=== PATIENT | male | born 1945 | race Caucasian/White ===

== ENCOUNTER 2019-03-10 15:05 | Inpatient (IN) | payer MEDICARE ==
[~2019-03-10] VITALS: Ht 170.2 cm; Wt 109.9 kg
[2019-03-10 15:58] LABS: BASOPHILS # (AUTO) 0.1 X10'3 (0-0.2); BASOPHILS % (AUTO) 0.9 % (0-1); EOSINOPHILS # (AUTO) 0.1 X10'3 (0-0.9); EOSINOPHILS % (AUTO) 0.9 % (0-6); HEMATOCRIT 38.8 % (42.0-52.0); HEMOGLOBIN 13.3 g/dl (14.0-17.9); LYMPHOCYTES # (AUTO) 3.9 X10'3 (1.1-4.8); LYMPHOCYTES % (AUTO) 36.9 % (21-51); MEAN CORPUSCULAR HGB CONC 34.4 g/dL (33.0-36.5); MEAN CORPUSCULAR VOLUME 87.2 FL (78-98); MEAN PLATELET VOLUME 8.9 FL (7.4-10.4); MONOCYTES % (AUTO) 9.2 % (2-12); NEUTROPHILS # (AUTO) 5.4 X10'3 (1.8-7.7); NEUTROPHILS % (AUTO) 52.1 % (42-75); PLATELET COUNT 211 X10'3 (140-440); RED BLOOD COUNT 4.45 X10'6 (4.70-6.10); RED CELL DISTRIBUTION WIDTH 14.1 % (11.5-14.5); WHITE BLOOD COUNT 10.4 X10'3 (4.5-11.0)
[2019-03-10 16:13] LABS: PARTIAL THROMBOPLASTIN TIME 25 SECONDS (22-32)
[2019-03-10 16:17] LABS: ALANINE AMINOTRANSFERASE 31 U/L (12-78); ALBUMIN 3.1 G/DL (3.4-5.0); ALBUMIN/GLOBULIN RATIO 0.9 (1.1-1.5); ALKALINE PHOSPHATASE 73 IU/L (46-116); ANION GAP 8 (8-16); ASPARTATE AMINO TRANSFERASE 24 U/L (10-37); BILIRUBIN,TOTAL 0.5 MG/DL (0.1-1.0); BLOOD UREA NITROGEN 21 MG/DL (7-18); BUN/CREATININE RATIO 11.1 (5.4-32.0); CHLORIDE 101 MMOL/L (99-107); GLUCOSE 200 MG/DL (70-104); POTASSIUM 4.1 MMOL/L (3.5-5.1); SODIUM 137 MMOL/L (135-145); TOTAL CARBON DIOXIDE 27.7 MMOL/L (24-32); TOTAL PROTEIN 6.6 G/DL (6.4-8.2); eGFR 35 ML/MIN
--- NOTE | 2019-03-10 16:17 | NUR ---
stroke level [address] Coates last seen normal at 1030 this morning.
[2019-03-10 16:27] LABS: ETHANOL < 0.010 GM/DL (0.0-0.010); MAGNESIUM 1.4 MG/DL (1.5-2.4); PHOSPHORUS 4.2 MG/DL (2.3-4.5)
--- NOTE | 2019-03-10 16:40 | NUR ---
tele neuro in progress.
--- NOTE | 2019-03-10 16:45 | NUR ---
no noted neurological deficits at this time,no ataxia,no dysphagia-was able to tolerate thin liquid without difficulty,no tongue asymmetry,no aphasia.
--- NOTE | 2019-03-10 16:51 | NUR ---
slurred speech resolved upon arrival to ED-per patient.
[2019-03-10] MEDS ORDERED: aspirin 325mg tablet PO ONE (16:55)
--- NOTE | 2019-03-10 17:31 | NUR ---
Received report from Maty. Called back due to patient not having a code status, allergies not addressed nor med rec. Stated the charge "told her to send her" and that is was "bonkers down there"
[2019-03-10] MEDS ORDERED: potassium Cl 20 mEq SR tablet PO PRN ×2 (17:40)
[2019-03-10] MEDS ORDERED: ondansetron/PF 4mg/2ml inj IV PRN (17:40)
[2019-03-10] MEDS ORDERED: mag hydrox/Alum hydrox/simeth 30ml oral suspension PO PRN (17:40)
[2019-03-10] MEDS ORDERED: magnesium hydroxide 30ml (MOM) UD suspension PO PRN (17:40)
[2019-03-10] MEDS ORDERED: magnesium 2GM in 50ml NS 50 ML IV PRN (17:40)
[2019-03-10] MEDS ORDERED: magnesium Cl slow-release 64mg tablet PO PRN (17:40)
[2019-03-10] MEDS ORDERED: potassium Cl 40MEQ/NS 500ml 500 ML IV PRN ×2 (17:40)
[2019-03-10] MEDS ORDERED: magnesium 4gm in 100ml NS 100 ML IV PRN (17:40)
[2019-03-10] MEDS ORDERED: bisacodyl 10mg suppository rectal RC PRN (17:40)
[2019-03-10] MEDS ORDERED: acetaminophen 325mg tablet PO PRN (17:40)
[2019-03-10] MEDS ORDERED: LIRA0.6P2 SQ (17:43)
[2019-03-10] MEDS ORDERED: OMEP40CA37 PO (17:44)
[2019-03-10] MEDS ORDERED: glucagon, human recombinant 1mg kit SUBCUT PRN ×2 (17:45→18:15)
[2019-03-10] MEDS ORDERED: dextrose 50%-water 50ml dispensing syringe IV PRN ×4 (17:45→18:15)
[2019-03-10] MEDS ORDERED: MESSAGE TO PHARMACY PO ONE ×2 (17:45→18:15)
[2019-03-10] MEDS ORDERED: dextrose ORAL solution 15 GM/59 ML bottle PO PRN ×4 (17:45→18:15)
[2019-03-10] MEDS ORDERED: insulin Lispro (HumaLOG) vial - multi-dose SQ SCH ×2 (17:45→18:15)
[2019-03-10] MEDS ORDERED: GLIP10TA11 PO (17:48)
[2019-03-10] MEDS ORDERED: FLO0.4C PO (17:49)
[2019-03-10] MEDS ORDERED: hydrALAZINE 20mg/ml inj. IV PRN (17:50)
[2019-03-10] MEDS ORDERED: METF500T PO (17:50)
[2019-03-10] MEDS ORDERED: LISI-600 PO (17:52)
[2019-03-10] MEDS ORDERED: MULT-933 PO (17:53)
[2019-03-10] MEDS ORDERED: INSU100I25 SQ (17:54)
[2019-03-10] MEDS ORDERED: SYN0.088T PO (17:55)
[2019-03-10 18:00] VITALS: BP 184/99
--- NOTE | 2019-03-10 18:06 | NUR ---
Page to Dr. Vargas MESSAGE: [id number] Juan Moody are reconciled for you to address. Allergy PN Phoebe [id number]
[2019-03-10] MEDS ORDERED: FLUO-103 PO (18:31)
[2019-03-10] MEDS ORDERED: SIMV40TA4 PO (18:31)
[2019-03-10] MEDS: pantoprazole 40 MG vial IV SCH (18:47)
[2019-03-10] MEDS: sodium chloride 0.45% 1,000 ML IV SCH (18:48)
[2019-03-10] MEDS: LIDOcaine 5% patch TP SCH (18:48)
[2019-03-10] MEDS: HYDROcodone/acetaminophen 5mg/325mg tablet PO PRN (18:48)
--- NOTE | 2019-03-10 18:50 | NUR ---
Received patient. Patient alert and oriented x4, walked to the bed. Received meds from . VSS
[2019-03-10] MEDS: heparin, porcine 5000 units/ml vial SQ SCH (19:56)
[2019-03-10] MEDS ORDERED: atorvastatin 20mg tablet PO SCH (20:00)
[2019-03-10] MEDS: docusate sod 100mg capsule PO SCH (20:46)
--- NOTE | 2019-03-10 20:49 | NUR ---
NIH stroke assessment completed. Patient scored 0. I am finding that, with some conversation, he can have a little difficulty with word finding. Otherwise, no deficits identified.
[2019-03-10] MEDS ORDERED: insulin glargine (Lantus) pen - multi-dose SQ SCH (21:00)
[2019-03-10] MEDS ORDERED: tamsulosin 0.4mg capsule PO SCH (21:00)
[2019-03-10 22:00] VITALS: BP 172/70
[2019-03-10 23:00] LABS: CLARITY,URINE CLEAR (Clear); COLOR,URINE YELLOW (Yellow); GLUCOSE, URINE 100 mg/dl (Neg); KETONES,URINE TRACE mg/dl (Neg); LEUKOCYTE ESTERASE ,URINE NEGATIVE (Neg); NITRITES, URINE NEGATIVE (Neg); OCCULT BLOOD,URINE MODERATE (Neg); PROTEIN,URINE >=300 mg/dl (Neg)
[2019-03-10 23:06] LABS: UA COLLECTION TYPE CLN CATCH MIDSTREAM
[2019-03-10 23:07] LABS: BACTERIA,URINE FEW /HPF (Neg); SQUAMOUS EPITHELIAL CELL,UR FEW /LPF (FEW); WBC,URINE NONE SEEN /HPF (0-4)
[2019-03-10 23:42] LABS: URINE AMPHETAMINE SCREEN NEGATIVE (Neg); URINE BARBITUATE SCREEN NEGATIVE (Neg); URINE BENZODIAZEPINES SCREEN NEGATIVE (Neg); URINE CANNABINOID SCREEN NEGATIVE (Neg); URINE COCAINE SCREEN NEGATIVE (Neg); URINE METHADONE SCREEN NEGATIVE (Neg); URINE OPIATE SCREEN POSITIVE (Neg); URINE PHENCYCLIDINE SCREEN NEGATIVE (Neg)
[2019-03-11] VITALS: BP 129/83
[2019-03-11 04:00] VITALS: BP 157/71
--- NOTE | 2019-03-11 05:59 | NUR ---
reviewed and agree with SRN assessment.
[2019-03-11 06:34] LABS: BASOPHILS # (AUTO) 0.1 X10'3 (0-0.2); BASOPHILS % (AUTO) 0.8 % (0-1); EOSINOPHILS # (AUTO) 0.2 X10'3 (0-0.9); EOSINOPHILS % (AUTO) 1.8 % (0-6); HEMATOCRIT 35.9 % (42.0-52.0); HEMOGLOBIN 12.3 g/dl (14.0-17.9); LYMPHOCYTES # (AUTO) 5.3 X10'3 (1.1-4.8); LYMPHOCYTES % (AUTO) 48.5 % (21-51); MEAN CORPUSCULAR HEMOGLOBIN 30.1 PG (27.0-31.0); MEAN CORPUSCULAR HGB CONC 34.4 g/dL (33.0-36.5); MEAN CORPUSCULAR VOLUME 87.6 FL (78-98); MEAN PLATELET VOLUME 8.9 FL (7.4-10.4); MONOCYTES # (AUTO) 1.1 X10'3 (0-0.9); MONOCYTES % (AUTO) 9.9 % (2-12); NEUTROPHILS # (AUTO) 4.3 X10'3 (1.8-7.7); PLATELET COUNT 187 X10'3 (140-440); RED CELL DISTRIBUTION WIDTH 13.6 % (11.5-14.5)
[2019-03-11] MEDS: HYDROcodone/acetaminophen 5mg/325mg tablet PO PRN ×2 (06:41→12:02)
[2019-03-11 06:47] LABS: ALBUMIN 2.7 G/DL (3.4-5.0); ANION GAP 6 (8-16); BLOOD UREA NITROGEN 19 MG/DL (7-18); BUN/CREATININE RATIO 11.4 (5.4-32.0); CALCIUM 8.8 MG/DL (8.5-10.1); CHLORIDE 104 MMOL/L (99-107); CHOL/HDL RATIO 5.3 (0.00-4.99); CHOLESTEROL 180 MG/DL (0-200); CREATININE 1.67 MG/DL (0.60-1.10); GLUCOSE 115 MG/DL (70-104); HDL CHOLESTEROL 34 MG/DL (35-60); LDL CHOLESTEROL 117 MG/DL (50-100); MAGNESIUM 1.4 MG/DL (1.5-2.4); SODIUM 138 MMOL/L (135-145); TOTAL CARBON DIOXIDE 27.6 MMOL/L (24-32); TRIGLYCERIDES 213 MG/DL (20-135); eGFR 41 ML/MIN
[2019-03-11] MEDS: LIDOcaine 5% patch TP SCH ×2 (06:48→11:36)
[2019-03-11] MEDS ORDERED: levoTHYROXINE 88mcg tablet PO SCH (07:00)
[2019-03-11] MEDS ORDERED: multivitamins, therapeutics tablet PO SCH (08:00)
[2019-03-11] MEDS: heparin, porcine 5000 units/ml vial SQ SCH (08:00)
[2019-03-11] MEDS ORDERED: lisinopril 10 MG tablet PO SCH (08:00)
[2019-03-11] MEDS ORDERED: aspirin 325mg tablet, delayed-release (Ecotrin) PO SCH (08:00)
[2019-03-11] MEDS ORDERED: insulin glargine (Lantus) pen - multi-dose SQ SCH (08:00)
[2019-03-11] MEDS ORDERED: FLUoxetine 10mg capsule PO SCH (08:00)
[2019-03-11] MEDS ORDERED: K and/or MAG REPLACEMENT MC SCH (08:00)
[2019-03-11 10:00] VITALS: BP 156/73
[2019-03-11] MEDS: pantoprazole 40 MG vial IV SCH (11:36)
[2019-03-11] MEDS: docusate sod 100mg capsule PO SCH (11:37)
[2019-03-11 11:38] VITALS: BP_SYST 172
[2019-03-11] MEDS: sodium chloride 0.45% 1,000 ML IV SCH (11:50)
[2019-03-11] MEDS ORDERED: ATOR20TA66 PO (13:31)
[2019-03-11] MEDS ORDERED: SYN0.112T PO (13:31)
[2019-03-11] MEDS ORDERED: ASPI-41 PO (13:31)
--- NOTE | 2019-03-11 14:36 | NUR ---
DM/Malnutrition Consults: Pt has no edema/wounds, weakness, or wt loss hx. Does not qualify for malnutrition at this time. Hx T2DM A1C 11.3. Pt/SO seen by RD for written/verbal HH/DM ed w/ RD contact information provided. Pt hx hyperlipidemia TG 213. Pt reports knowing what to do just not doing it; encouraged water intake since pt reports not drinking much; admit w/ dehydration and stroke. RD encouraged attending CDE course. PO 100% meals meeting needs. LBM 03/07 w/ MoM and dulcolax PRN. Will continue to monitor. Rec: 1. continue carb controlled/heart healthy diet 2. routine bowel care 3. wt per rx Addendum: 03/11/19 at [address] Amended: Links added.
--- NOTE | 2019-03-11 15:15 | NUR ---
Received discharge orders from Dr. Vargas. Discharge medications called to [facility] on [address] per pts . IV LFA dc'd with cannula intact. No redness/swelling at insertion site. Applied bandaid. Reviewed discharge medications with pt and discharged via w/c to front lobby to private car.
[2019-03-12] MEDS ORDERED: levoTHYROXINE 112mcg tablet PO SCH (07:00)
[2019-03-12] MEDS ORDERED: pantoprazole 40mg Tablet.DR PO SCH (07:30)
== END 2019-03-11 15:15 | disposition home or self-care (01) | DRG 65 ==
LOC: ER 15:06 → ORTHO 4S 17:08 → CMPBEDREQ 19:56
PROVIDERS: ADMIT Internal Medicine; ATTEND Internal Medicine
DX: I63.9 Cerebral infarction, unspecified (principal); N17.9 Acute kidney failure, unspecified; E11.9 Type 2 diabetes mellitus without complications; M54.9 Dorsalgia, unspecified; E83.42 Hypomagnesemia; E78.00 Pure hypercholesterolemia, unspecified; I10 Essential (primary) hypertension; E78.5 Hyperlipidemia, unspecified; F32.9 Major depressive disorder, single episode, unspecified; E03.9 Hypothyroidism, unspecified; E86.0 Dehydration; L40.9 Psoriasis, unspecified; Z88.0 Allergy status to penicillin; Z79.82 Long term (current) use of aspirin; Z79.899 Other long term (current) drug therapy; Z87.891 Personal history of nicotine dependence
CPT/HCPCS: 36415; 70450; 70544; 70551; 71045; 80048; 80053; 80061; 80305; 80320; 81001; 82948; 83036; 83735; 84100; 84443; 84484; 85025; 85610; 85651; 85730; 93005; 93306; 93880; 97162; 97530; 99285; C9113; G0378; J1644; J1815; J2405

== ENCOUNTER 2019-03-19 13:02 | Emergency (ER) | payer MEDICARE ==
[~2019-03-19] VITALS: Ht 170.2 cm; Wt 96.0 kg
[~2019-03-19 13:02] MED LIST: ASPI-41 PO; ATOR20TA66 PO; FLO0.4C PO; FLUO-103 PO; INSU100I25 SQ; LISI-600 PO; MULT-933 PO; OMEP40CA37 PO; SYN0.112T PO
[2019-03-19 13:13] VITALS: BP 122/83
[2019-03-19] MEDS ORDERED: gabapentin 400mg capsule PO STA (14:55)
[2019-03-19] MEDS ORDERED: GABA-532 PO (15:02)
[2019-03-19] MEDS ORDERED: gabapentin 300mg capsule PO STA (15:03)
== END 2019-03-19 15:44 | disposition home or self-care (01) ==
LOC: ER 13:03
DX: B02.29 Other postherpetic nervous system involvement (principal); I10 Essential (primary) hypertension; E78.00 Pure hypercholesterolemia, unspecified; E11.9 Type 2 diabetes mellitus without complications; Z88.0 Allergy status to penicillin; Z79.82 Long term (current) use of aspirin; Z79.4 Long term (current) use of insulin
CPT/HCPCS: 99284

== ENCOUNTER 2019-03-26 20:39 | Emergency (ER) | payer MEDICARE ==
[~2019-03-26] VITALS: Ht 170.2 cm; Wt 104.4 kg
[~2019-03-26 20:39] MED LIST changes: +GABA-532 PO
[2019-03-26 20:51] VITALS: BP 175/76
[2019-03-26] MEDS ORDERED: HYDROcodone/acetaminophen 5mg/325mg tablet PO ONE (22:05)
[2019-03-26] MEDS ORDERED: HYDR-4383 PO (22:06)
== END 2019-03-26 22:48 | disposition home or self-care (01) ==
LOC: ER 20:40
DX: B02.9 Zoster without complications (principal); L53.8 Other specified erythematous conditions; E78.00 Pure hypercholesterolemia, unspecified; I10 Essential (primary) hypertension; E11.9 Type 2 diabetes mellitus without complications; Z86.73 Personal history of transient ischemic attack (TIA), and cerebral infarction without residual deficits; Z88.0 Allergy status to penicillin; Z79.82 Long term (current) use of aspirin; Z79.4 Long term (current) use of insulin; Z79.899 Other long term (current) drug therapy
CPT/HCPCS: 99283

== ENCOUNTER 2019-04-02 19:37 | Emergency (ER) | payer MEDICARE ==
[~2019-04-02] VITALS: Ht 170.2 cm; Wt 105.0 kg
[~2019-04-02 19:37] MED LIST changes: +HYDR-4383 PO
[2019-04-02 20:33] LABS: BASOPHILS # (AUTO) 0.1 X10'3 (0-0.2); EOSINOPHILS # (AUTO) 0.2 X10'3 (0-0.9); EOSINOPHILS % (AUTO) 2.1 % (0-6); HEMATOCRIT 37.9 % (42.0-52.0); HEMOGLOBIN 12.8 g/dl (14.0-17.9); LYMPHOCYTES # (AUTO) 3.2 X10'3 (1.1-4.8); LYMPHOCYTES % (AUTO) 27.8 % (21-51); MEAN CORPUSCULAR HEMOGLOBIN 29.4 PG (27.0-31.0); MEAN CORPUSCULAR HGB CONC 33.7 g/dL (33.0-36.5); MEAN CORPUSCULAR VOLUME 87.4 FL (78-98); MEAN PLATELET VOLUME 9.1 FL (7.4-10.4); MONOCYTES # (AUTO) 0.7 X10'3 (0-0.9); MONOCYTES % (AUTO) 5.8 % (2-12); NEUTROPHILS # (AUTO) 7.2 X10'3 (1.8-7.7); NEUTROPHILS % (AUTO) 63.3 % (42-75); PLATELET COUNT 190 X10'3 (140-440); RED BLOOD COUNT 4.34 X10'6 (4.70-6.10); RED CELL DISTRIBUTION WIDTH 13.6 % (11.5-14.5); WHITE BLOOD COUNT 11.4 X10'3 (4.5-11.0)
[2019-04-02 20:46] LABS: ALANINE AMINOTRANSFERASE 28 U/L (12-78); ALBUMIN/GLOBULIN RATIO 0.9 (1.1-1.5); ALKALINE PHOSPHATASE 94 IU/L (46-116); ANION GAP 6 (8-16); ASPARTATE AMINO TRANSFERASE 16 U/L (10-37); BILIRUBIN,TOTAL 0.4 MG/DL (0.1-1.0); BLOOD UREA NITROGEN 21 MG/DL (7-18); BUN/CREATININE RATIO 13.8 (5.4-32.0); CALCIUM 9.3 MG/DL (8.5-10.1); CHLORIDE 95 MMOL/L (99-107); CREATININE 1.52 MG/DL (0.60-1.10); POTASSIUM 4.8 MMOL/L (3.5-5.1); SODIUM 127 MMOL/L (135-145); TOTAL CARBON DIOXIDE 26.1 MMOL/L (24-32); TOTAL PROTEIN 6.4 G/DL (6.4-8.2); eGFR 45 ML/MIN
[2019-04-02 20:47] LABS: GLUCOSE 491 MG/DL (70-104)
[2019-04-02] MEDS ORDERED: insulin regular, human 10 units/0.1 ml syringe IV ONE (20:50)
[2019-04-02] MEDS ORDERED: normal saline 1000ML IV soln IVB ONE (20:50)
[2019-04-02 21:22] VITALS: BP 159/70
[2019-04-02] MEDS ORDERED: ACYC-202 PO (21:24)
== END 2019-04-02 21:41 | disposition home or self-care (01) ==
LOC: ER 19:38
DX: R42 Dizziness and giddiness (principal); E87.1 Hypo-osmolality and hyponatremia; E11.22 Type 2 diabetes mellitus with diabetic chronic kidney disease; I12.9 Hypertensive chronic kidney disease with stage 1 through stage 4 chronic kidney disease, or unspecified chronic kidney disease; N18.3 Chronic kidney disease, stage 3 (moderate); E78.00 Pure hypercholesterolemia, unspecified; Z86.73 Personal history of transient ischemic attack (TIA), and cerebral infarction without residual deficits; Z88.0 Allergy status to penicillin; Z79.82 Long term (current) use of aspirin; Z79.4 Long term (current) use of insulin; Z79.899 Other long term (current) drug therapy
CPT/HCPCS: 36415; 71045; 80053; 82948; 84484; 85025; 93005; 96361; 96374; 99284; J1815; J7030

== ENCOUNTER 2021-07-14 11:43 | Inpatient (IN) | payer MEDICARE ==
[~2021-07-14] VITALS: Ht 170.2 cm; Wt 110.5 kg
[~2021-07-14 11:43] MED LIST changes: +ACET-75 PO; +ALBU2.5V7 NEB; +ALBU8.5H17 INH; +ASPI-100 PO; -ASPI-41 PO; +BUDE10.22 INH; +CARV6.253 PO; +DOCU-21 PO; +FLUO-1 PO; -FLUO-103 PO; +FURO-150 PO; -GABA-532 PO; +GABA300C PO; -HYDR-4383 PO; -INSU100I25 SQ; +INSU100V12 SQ; +LEVO125T8 PO; +LIRA0.6P2 SUBCUT; -LISI-600 PO; +LISI10TA27 PO; -MULT-933 PO; +MUPI22OI30 TOP; +NITR0.4T48 SL; +OMEP40CA21 PO; -OMEP40CA37 PO; +PRAS25CA PO; +SPIR25TA5 PO; -SYN0.112T PO; +TRAZ-251 PO
[2021-07-14 13:09] LABS: BASOPHILS # (AUTO) 0.1 X10'3 (0-0.2); EOSINOPHILS # (AUTO) 0.9 X10'3 (0-0.9); EOSINOPHILS % (AUTO) 8.4 % (0-6); HEMATOCRIT 29.4 % (42.0-52.0); HEMOGLOBIN 9.5 g/dl (14.0-17.9); LYMPHOCYTES # (AUTO) 4.5 X10'3 (1.1-4.8); LYMPHOCYTES % (AUTO) 42.6 % (21-51); MEAN CORPUSCULAR HEMOGLOBIN 29.1 PG (27.0-31.0); MEAN CORPUSCULAR HGB CONC 32.4 g/dL (33.0-36.5); MEAN PLATELET VOLUME 9.1 FL (7.4-10.4); MONOCYTES % (AUTO) 9.3 % (2-12); NEUTROPHILS # (AUTO) 4.1 X10'3 (1.8-7.7); NEUTROPHILS % (AUTO) 38.7 % (42-75); PLATELET COUNT 192 X10'3 (140-440); RED BLOOD COUNT 3.27 X10'6 (4.70-6.10); RED CELL DISTRIBUTION WIDTH 14.7 % (11.5-14.5); WHITE BLOOD COUNT 10.5 X10'3 (4.5-11.0)
[2021-07-14 13:35] LABS: ALANINE AMINOTRANSFERASE 25 U/L (12-78); ALBUMIN 2.8 G/DL (3.4-5.0); ALBUMIN/GLOBULIN RATIO 0.9 (1.1-1.5); ALKALINE PHOSPHATASE 135 IU/L (46-116); ANION GAP 8 (8-16); ASPARTATE AMINO TRANSFERASE 21 U/L (10-37); BILIRUBIN,TOTAL 0.3 MG/DL (0.1-1.0); BLOOD UREA NITROGEN 32 MG/DL (7-18); BUN/CREATININE RATIO 15.8 (5.4-32.0); CALCIUM 8.1 MG/DL (8.5-10.1); CREATININE 2.03 MG/DL (0.60-1.10); GLUCOSE 161 MG/DL (70-104); POTASSIUM 3.8 MMOL/L (3.5-5.1); SODIUM 147 MMOL/L (135-145); TOTAL CARBON DIOXIDE 27.5 MMOL/L (24-32); eGFR 32 ML/MIN
[2021-07-14 14:14] LABS: CHLORIDE 112 MMOL/L (99-107)
--- NOTE | 2021-07-14 19:08 | NUR ---
PT WORRIED ABOUT HIS BLOOD SUGAR, CHECKED IN TRIAGE WITH REPEAT VS, WAS 157
[2021-07-14] MEDS ORDERED: ipratropium/albuterol 3ml nebule NEB ONE (19:20)
[2021-07-14] MEDS ORDERED: furosemide 10 MG/1 ML 10ml inj IV ONE (20:45)
--- NOTE | 2021-07-14 21:40 | NUR ---
assumed care to patient.assisted on a gurney, placed in a hospital gown.
[2021-07-14] MEDS ORDERED: LIRA0.6P2 SUBCUT (23:02)
[2021-07-14] MEDS ORDERED: FLO0.4C PO (23:02)
[2021-07-14] MEDS ORDERED: BUDE0.5A11 IH (23:02)
[2021-07-14] MEDS ORDERED: CHOL400T57 PO (23:02)
[2021-07-14] MEDS ORDERED: ALB0.5UD INH (23:02)
[2021-07-14] MEDS ORDERED: FERR325T28 PO (23:02)
[2021-07-14] MEDS ORDERED: CYAN50009 PO (23:02)
[2021-07-14] MEDS ORDERED: FURO-150 PO (23:02)
--- NOTE | 2021-07-14 23:24 | NUR ---
pt roomed in bed 1. I assumed care of patient. pt satting well while sitting on a 90 degree angle. he denies any chest pain at present.
[2021-07-15] MEDS ORDERED: magnesium 4gm in 100ml NS 100 ML IV PRN (00:10)
[2021-07-15] MEDS ORDERED: magnesium hydroxide 30ml (MOM) UD suspension PO PRN (00:10)
[2021-07-15] MEDS ORDERED: morphine 2 MG/ML inj. syringe IV PRN (00:10)
[2021-07-15] MEDS ORDERED: HYDROcodone/acetaminophen 5mg/325mg tablet PO PRN (00:10)
[2021-07-15] MEDS ORDERED: potassium Cl 20 mEq SR tablet PO PRN ×2 (00:10)
[2021-07-15] MEDS ORDERED: mag hydrox/Alum hydrox/simeth 30ml oral suspension PO PRN (00:10)
[2021-07-15] MEDS ORDERED: magnesium 2GM in 50ml NS 50 ML IV PRN (00:10)
[2021-07-15] MEDS ORDERED: acetaminophen 325mg tablet PO PRN ×2 (00:10)
[2021-07-15] MEDS ORDERED: magnesium Cl slow-release 64mg tablet PO PRN (00:10)
[2021-07-15] MEDS ORDERED: potassium Cl 40MEQ/1/2NS 520ml 520 ML IV PRN ×2 (00:10)
[2021-07-15] MEDS ORDERED: ondansetron/PF 4mg/2ml inj IV PRN (00:10)
[2021-07-15 01:34] LABS: % IRON SATURATION 11 % (11-46); IRON 34 UG/DL (53-167); TOTAL IRON BINDING CAPACITY 298 UG/DL (259-388)
--- NOTE | 2021-07-15 04:03 | NUR ---
PAGED HOSPITALIST. PT UNCOMFORTABLE AND HAVING DIFFICULTY SLEEPING. MEDICATED FOR PAIN.
--- NOTE | 2021-07-15 04:08 | NUR ---
DR PEARSON ORDERED BREATHING TX FOR PT. WAITING FOR RT. PAIN HAS BEEN IMPROVED.
--- NOTE | 2021-07-15 04:27 | NUR ---
RT AT BEDSIDE
[2021-07-15 07:00] VITALS: BP 153/84
[2021-07-15] MEDS ORDERED: albuterol 2.5 MG/3 ML nebule NEB SCH (07:00)
[2021-07-15] MEDS: albuterol 2.5 MG/3 ML nebule NEB SCH ×3 (07:39→15:11)
[2021-07-15] MEDS: K and/or MAG REPLACEMENT MC SCH ×2 (08:00→20:00)
[2021-07-15] MEDS ORDERED: aspirin 81mg, enteric-coated 1 TAB TABLET.DR PO SCH (08:00)
[2021-07-15] MEDS: atorvastatin 20mg tablet PO SCH (08:17)
[2021-07-15] MEDS: carvedilol 6.25mg tablet PO SCH ×2 (08:17→20:08)
[2021-07-15] MEDS: FLUoxetine 20mg capsule PO SCH (08:17)
[2021-07-15] MEDS: furosemide 20 MG/2 ML vial IV SCH ×2 (08:18→20:10)
[2021-07-15] MEDS: heparin, porcine 5000 units/ml vial SQ SCH ×2 (08:18→20:09)
[2021-07-15] MEDS: pantoprazole 40mg Tablet.DR PO SCH (08:21)
[2021-07-15] MEDS: lisinopril 10 MG tablet PO SCH (08:21)
[2021-07-15] MEDS: levoTHYROXINE 125mcg tablet PO SCH (08:21)
[2021-07-15] MEDS: aspirin 81mg, enteric-coated 1 TAB TABLET.DR PO SCH (09:07)
[2021-07-15 09:30] LABS: BASOPHILS # (AUTO) 0.1 X10'3 (0-0.2); BASOPHILS % (AUTO) 0.7 % (0-1); EOSINOPHILS # (AUTO) 0.7 X10'3 (0-0.9); EOSINOPHILS % (AUTO) 6.5 % (0-6); HEMATOCRIT 29.7 % (42.0-52.0); HEMOGLOBIN 9.6 g/dl (14.0-17.9); LYMPHOCYTES % (AUTO) 47.3 % (21-51); MEAN CORPUSCULAR HEMOGLOBIN 28.6 PG (27.0-31.0); MEAN CORPUSCULAR HGB CONC 32.5 g/dL (33.0-36.5); MEAN CORPUSCULAR VOLUME 88.2 FL (78-98); MEAN PLATELET VOLUME 8.5 FL (7.4-10.4); MONOCYTES # (AUTO) 0.8 X10'3 (0-0.9); MONOCYTES % (AUTO) 7.5 % (2-12); PLATELET COUNT 199 X10'3 (140-440); RED BLOOD COUNT 3.37 X10'6 (4.70-6.10); RED CELL DISTRIBUTION WIDTH 14.3 % (11.5-14.5); WHITE BLOOD COUNT 10.6 X10'3 (4.5-11.0)
[2021-07-15 09:45] LABS: ALANINE AMINOTRANSFERASE 29 U/L (12-78); ALBUMIN 2.8 G/DL (3.4-5.0); ALBUMIN/GLOBULIN RATIO 0.8 (1.1-1.5); ALKALINE PHOSPHATASE 126 IU/L (46-116); ANION GAP 7 (8-16); ASPARTATE AMINO TRANSFERASE 20 U/L (10-37); BILIRUBIN,TOTAL 0.5 MG/DL (0.1-1.0); BLOOD UREA NITROGEN 27 MG/DL (7-18); BUN/CREATININE RATIO 14.3 (5.4-32.0); CALCIUM 8.3 MG/DL (8.5-10.1); CHLORIDE 111 MMOL/L (99-107); CREATININE 1.89 MG/DL (0.60-1.10); MAGNESIUM 1.8 MG/DL (1.5-2.4); PHOSPHORUS 3.8 MG/DL (2.3-4.5); POTASSIUM 3.9 MMOL/L (3.5-5.1); SODIUM 148 MMOL/L (135-145); TOTAL CARBON DIOXIDE 30.1 MMOL/L (24-32); TOTAL PROTEIN 6.1 G/DL (6.4-8.2); eGFR 35 ML/MIN
[2021-07-15 09:52] LABS: GLUCOSE 108 MG/DL (70-104)
[2021-07-15 11:00] VITALS: BP 126/100
[2021-07-15 15:00] VITALS: BP 124/62
[2021-07-15 18:00] VITALS: BP 133/67
[2021-07-15] MEDS: ipratropium/albuterol 3ml nebule NEB SCH ×2 (18:58→23:20)
[2021-07-15] MEDS: methylPREDNISolone sod succ/PF 40mg inj. IV SCH (20:09)
[2021-07-15] MEDS ORDERED: temazepam 15mg capsule PO PRN (21:00)
[2021-07-15] MEDS ORDERED: traZODone 50mg tablet PO SCH (21:00)
[2021-07-15] MEDS ORDERED: gabapentin 300mg capsule PO SCH (21:00)
[2021-07-15 22:00] VITALS: BP 136/78
[2021-07-16 02:00] VITALS: BP 147/85
[2021-07-16] MEDS: ipratropium/albuterol 3ml nebule NEB SCH ×3 (02:54→11:45)
[2021-07-16 05:55] LABS: BASOPHILS % (AUTO) 0.5 % (0-1); EOSINOPHILS % (AUTO) 0 % (0-6); HEMATOCRIT 32.6 % (42.0-52.0); HEMOGLOBIN 10.7 g/dl (14.0-17.9); LYMPHOCYTES # (AUTO) 1.7 X10'3 (1.1-4.8); LYMPHOCYTES % (AUTO) 24.9 % (21-51); MEAN CORPUSCULAR HEMOGLOBIN 29.3 PG (27.0-31.0); MEAN CORPUSCULAR HGB CONC 32.9 g/dL (33.0-36.5); MEAN PLATELET VOLUME 9.3 FL (7.4-10.4); MONOCYTES # (AUTO) 0.1 X10'3 (0-0.9); NEUTROPHILS # (AUTO) 4.9 X10'3 (1.8-7.7); NEUTROPHILS % (AUTO) 73.6 % (42-75); PLATELET COUNT 219 X10'3 (140-440); RED BLOOD COUNT 3.66 X10'6 (4.70-6.10); RED CELL DISTRIBUTION WIDTH 14.6 % (11.5-14.5); WHITE BLOOD COUNT 6.6 X10'3 (4.5-11.0)
[2021-07-16 06:00] VITALS: BP 137/76
[2021-07-16 06:18] LABS: ALANINE AMINOTRANSFERASE 27 U/L (12-78); ALBUMIN 3.1 G/DL (3.4-5.0); ALBUMIN/GLOBULIN RATIO 0.8 (1.1-1.5); ALKALINE PHOSPHATASE 148 IU/L (46-116); ANION GAP 11 (8-16); ASPARTATE AMINO TRANSFERASE 20 U/L (10-37); BILIRUBIN,TOTAL 0.5 MG/DL (0.1-1.0); BLOOD UREA NITROGEN 35 MG/DL (7-18); CALCIUM 8.9 MG/DL (8.5-10.1); CHLORIDE 106 MMOL/L (99-107); CREATININE 2.33 MG/DL (0.60-1.10); GLUCOSE 197 MG/DL (70-104); PHOSPHORUS 5.2 MG/DL (2.3-4.5); POTASSIUM 4.5 MMOL/L (3.5-5.1); SODIUM 145 MMOL/L (135-145); TOTAL CARBON DIOXIDE 27.7 MMOL/L (24-32); TOTAL PROTEIN 6.9 G/DL (6.4-8.2); eGFR 28 ML/MIN
--- NOTE | 2021-07-16 06:31 | NUR ---
07/15 recieved report from steffen douglas Problems reprioritized. Patient report given, Crystalquestions answered & plan of care reviewed with .
--- NOTE | 2021-07-16 06:43 | NUR ---
Patient in room PCU 3025. I have received report from John MALAVE and had the opportunity to ask questions and assume patient care.
[2021-07-16] MEDS: K and/or MAG REPLACEMENT MC SCH (08:00)
[2021-07-16] MEDS: methylPREDNISolone sod succ/PF 40mg inj. IV SCH (08:42)
[2021-07-16] MEDS: aspirin 81mg, enteric-coated 1 TAB TABLET.DR PO SCH (08:43)
[2021-07-16] MEDS: carvedilol 6.25mg tablet PO SCH (08:43)
[2021-07-16] MEDS: heparin, porcine 5000 units/ml vial SQ SCH (08:43)
[2021-07-16] MEDS: lisinopril 10 MG tablet PO SCH (08:43)
[2021-07-16] MEDS: FLUoxetine 20mg capsule PO SCH (08:44)
[2021-07-16] MEDS: atorvastatin 20mg tablet PO SCH (08:44)
[2021-07-16] MEDS: levoTHYROXINE 125mcg tablet PO SCH (08:44)
[2021-07-16] MEDS: furosemide 20 MG/2 ML vial IV SCH (08:44)
[2021-07-16] MEDS: pantoprazole 40mg Tablet.DR PO SCH (08:46)
[2021-07-16] MEDS ORDERED: PANT-47 PO (09:44)
[2021-07-16] MEDS ORDERED: PRED10TA23 PO (09:44)
[2021-07-16] MEDS ORDERED: IPRA3AMP9 NEB ×2 (09:44)
--- NOTE | 2021-07-16 09:51 | NUR ---
DM consult: Pt with A1c 7.0%, well controlled for age. Written DM education with RD contact information placed in patient's chart. Noted pt with active discharge orders at this time. Will remain available. Addendum: 07/16/21 at [address] Amended: Links added.
--- NOTE | 2021-07-16 10:59 | NUR ---
O2 Sat at rest on room air:_86__% If below 89%: Recovery O2 Sat at rest on __2_LPM:__92_%:___% via nasal cannula (mask/nasal cannula, etc..) No further documentation is necessary. If O2 Sat did not drop below 89% on room air,ambulate patient on room air. O2 Sat while ambulating on room air:___% Recovery O2 Sat while ambulating on ___LPM:___% No further documentation is necessary. If patient does not drop below 89% while ambulating, he/she does not qualify for home O2.
[2021-07-16 11:00] VITALS: BP 102/49
--- NOTE | 2021-07-16 14:02 | NUR ---
Patient safe for discharge per providers orders. Medications and discharge instructions discussed, with ability for patient and spouse to ask questions. PIV discontinued cannula intact. Telemetry discontinued. Belongings sent with patient. Patient wheeled to lobby via nursing staff. Patient went home in private vehicle with spouse.
== END 2021-07-16 14:00 | disposition home health service (06) | DRG 190 ==
LOC: ER 11:44 → ED HOLD 07-15 00:10 → PCU 3S 07-15 06:55
PROVIDERS: ADMIT Internal Medicine; ATTEND Internal Medicine
DX: J44.1 Chronic obstructive pulmonary disease with (acute) exacerbation (principal); I50.33 Acute on chronic diastolic (congestive) heart failure; I13.0 Hypertensive heart and chronic kidney disease with heart failure and stage 1 through stage 4 chronic kidney disease, or unspecified chronic kidney disease; R09.02 Hypoxemia; E78.5 Hyperlipidemia, unspecified; Z20.822 Contact with and (suspected) exposure to COVID-19; E11.22 Type 2 diabetes mellitus with diabetic chronic kidney disease; D63.8 Anemia in other chronic diseases classified elsewhere; G89.29 Other chronic pain; E03.9 Hypothyroidism, unspecified; E78.00 Pure hypercholesterolemia, unspecified; F17.210 Nicotine dependence, cigarettes, uncomplicated; N18.30 Chronic kidney disease, stage 3 unspecified; Z86.73 Personal history of transient ischemic attack (TIA), and cerebral infarction without residual deficits; Z88.0 Allergy status to penicillin; Z71.6 Tobacco abuse counseling
CPT/HCPCS: 36415; 71045; 80053; 82948; 83036; 83540; 83550; 83735; 83880; 84100; 84484; 85025; 87081; 87635; 93005; 93306; 94640; 94760; 96374; 97110; 97161; 97530; 99285; C9803; G0378; J1644; J1940; J2270; J2405; J2920

== ENCOUNTER 2021-07-24 22:10 | Inpatient (IN) | payer MEDICARE ==
[~2021-07-24] VITALS: Ht 170.2 cm; Wt 100.0 kg
[~2021-07-24 22:10] MED LIST changes: -ALBU2.5V7 NEB; +BUDE0.5A11 IH; -BUDE10.22 INH; +CHOL400T57 PO; +CYAN50009 PO; +FERR325T28 PO; +IPRA3AMP9 NEB; -NITR0.4T48 SL; +PANT-47 PO; +PRED10TA23 PO; -SPIR25TA5 PO
[2021-07-24] MEDS ORDERED: methylPREDNISolone sod succ 125mg/2ml vial IV ONE (22:20)
[2021-07-24] MEDS ORDERED: albuterol 2.5 MG/3 ML nebule CONTNEB PRN (22:20)
[2021-07-24 22:58] LABS: BASOPHILS # (AUTO) 0.1 X10'3 (0-0.2); BASOPHILS % (AUTO) 0.5 % (0-1); EOSINOPHILS # (AUTO) 0.3 X10'3 (0-0.9); EOSINOPHILS % (AUTO) 2.5 % (0-6); HEMATOCRIT 29.4 % (42.0-52.0); HEMOGLOBIN 9.5 g/dl (14.0-17.9); LYMPHOCYTES # (AUTO) 5.3 X10'3 (1.1-4.8); LYMPHOCYTES % (AUTO) 39.5 % (21-51); MEAN CORPUSCULAR HEMOGLOBIN 28.4 PG (27.0-31.0); MEAN CORPUSCULAR HGB CONC 32.3 g/dL (33.0-36.5); MEAN CORPUSCULAR VOLUME 88.2 FL (78-98); MEAN PLATELET VOLUME 9.5 FL (7.4-10.4); MONOCYTES # (AUTO) 0.9 X10'3 (0-0.9); MONOCYTES % (AUTO) 6.7 % (2-12); NEUTROPHILS # (AUTO) 6.8 X10'3 (1.8-7.7); NEUTROPHILS % (AUTO) 50.8 % (42-75); PLATELET COUNT 185 X10'3 (140-440); RED BLOOD COUNT 3.34 X10'6 (4.70-6.10); RED CELL DISTRIBUTION WIDTH 14.5 % (11.5-14.5); WHITE BLOOD COUNT 13.4 X10'3 (4.5-11.0)
[2021-07-24 23:05] LABS: ALANINE AMINOTRANSFERASE 23 U/L (12-78); ALBUMIN 2.8 G/DL (3.4-5.0); ALBUMIN/GLOBULIN RATIO 0.9 (1.1-1.5); ALKALINE PHOSPHATASE 108 IU/L (46-116); ANION GAP 6 (8-16); ASPARTATE AMINO TRANSFERASE 16 U/L (10-37); BILIRUBIN,TOTAL 0.7 MG/DL (0.1-1.0); BLOOD UREA NITROGEN 36 MG/DL (7-18); BUN/CREATININE RATIO 19.7 (5.4-32.0); CALCIUM 8.5 MG/DL (8.5-10.1); CHLORIDE 105 MMOL/L (99-107); CREATININE 1.83 MG/DL (0.60-1.10); D-DIMER 1.24 MG/L FEU (0-0.50); GLUCOSE 175 MG/DL (70-104); PARTIAL THROMBOPLASTIN TIME 27 SECONDS (22-32); POTASSIUM 4.1 MMOL/L (3.5-5.1); SODIUM 143 MMOL/L (135-145); TOTAL CARBON DIOXIDE 31.7 MMOL/L (24-32); TOTAL PROTEIN 5.9 G/DL (6.4-8.2); eGFR 36 ML/MIN
[2021-07-24 23:11] LABS: MAGNESIUM 1.7 MG/DL (1.5-2.4)
--- NOTE | 2021-07-24 23:34 | NUR ---
wfe at bedside. pt receiving continuous neb treatment. ox sats on 2 liter 95%, rr 26/min.
[2021-07-25] MEDS ORDERED: azithromycin/NS 500mg/250ml 250 ML IV ONE
[2021-07-25] MEDS ORDERED: furosemide 10 MG/1 ML 10ml inj IV ONE (01:35)
[2021-07-25] MEDS ORDERED: morphine 2 MG/ML inj. syringe IV PRN ×2 (02:00)
[2021-07-25] MEDS ORDERED: bisacodyl 10mg suppository rectal RC PRN (02:00)
[2021-07-25] MEDS ORDERED: diphenhydrAMINE 25mg capsule PO PRN (02:00)
[2021-07-25] MEDS ORDERED: acetaminophen 325mg tablet PO PRN ×2 (02:00)
[2021-07-25] MEDS ORDERED: ipratropium/albuterol 3ml nebule NEB PRN (02:00)
[2021-07-25] MEDS ORDERED: acetaminophen 650mg rectal suppository RC PRN (02:00)
[2021-07-25] MEDS ORDERED: diphenhydrAMINE 50 mg/ml inj IV PRN (02:00)
[2021-07-25] MEDS ORDERED: magnesium hydroxide 30ml (MOM) UD suspension PO PRN (02:00)
[2021-07-25] MEDS ORDERED: ondansetron/PF 4mg/2ml inj IV PRN (02:00)
[2021-07-25] MEDS ORDERED: ondansetron 4mg rapidly disintigrating tab PO PRN (02:00)
[2021-07-25] MEDS ORDERED: mag hydrox/Alum hydrox/simeth 30ml oral suspension PO PRN (02:00)
[2021-07-25] MEDS ORDERED: HYDROcodone/acetaminophen 5mg/325mg tablet PO PRN (02:00)
[2021-07-25] MEDS ORDERED: glucagon, human recombinant 1mg kit SUBCUT PRN (02:05)
[2021-07-25] MEDS ORDERED: dextrose ORAL solution 15 GM/59 ML bottle PO PRN ×2 (02:05)
[2021-07-25] MEDS ORDERED: dextrose 50%-water 50ml dispensing syringe IV PRN ×2 (02:05)
[2021-07-25] MEDS ORDERED: MESSAGE TO PHARMACY PO ONE (02:05)
[2021-07-25 02:47] LABS: CLARITY,URINE CLEAR (Clear); COLOR,URINE YELLOW (Yellow); GLUCOSE, URINE NEGATIVE (Neg); KETONES,URINE NEGATIVE (Neg); LEUKOCYTE ESTERASE ,URINE NEGATIVE (Neg); NITRITES, URINE NEGATIVE (Neg); OCCULT BLOOD,URINE MODERATE (Neg); PH,URINE 6.5 (4.8-8.0); PROTEIN,URINE >=300 mg/dl (Neg)
[2021-07-25 02:48] LABS: UA COLLECTION TYPE URINAL
[2021-07-25 03:13] LABS: BACTERIA,URINE NONE SEEN /HPF (Neg); MUCUS STRANDS NONE SEEN /LPF (Neg); SQUAMOUS EPITHELIAL CELL,UR FEW /LPF (FEW); WBC,URINE NONE SEEN /HPF (0-4)
[2021-07-25 03:19] LABS: HEMOGLOBIN A1C 7.8 % (4.5-6.2)
[2021-07-25 03:24] LABS: PHOSPHORUS 3.1 MG/DL (2.3-4.5)
[2021-07-25] MEDS ORDERED: DOCU100C40 PO (03:45)
[2021-07-25] MEDS ORDERED: ASPI81TA52 PO (03:45)
[2021-07-25] MEDS ORDERED: FURO-150 PO (03:45)
--- NOTE | 2021-07-25 07:27 | NUR ---
I have received report from Dion MALAVE [facility] and had the opportunity to ask questions and will assume patient care once to floor.
[2021-07-25 08:00] VITALS: BP 150/88
[2021-07-25] MEDS ORDERED: furosemide 20 MG/2 ML vial IV SCH (08:00)
[2021-07-25] MEDS ORDERED: docusate sod 100mg capsule PO SCH (08:00)
[2021-07-25] MEDS ORDERED: carVEDilol 3.125mg tablet PO SCH (08:00)
[2021-07-25] MEDS ORDERED: nitroGLYCERIN 0.2mg/hour patch TD SCH (08:00)
[2021-07-25] MEDS ORDERED: heparin, porcine 5000 units/ml vial SQ SCH (08:00)
[2021-07-25] MEDS: insulin Lispro (HumaLOG) vial - multi-dose SQ SCH ×2 (08:50→13:35)
[2021-07-25] MEDS ORDERED: non-formulary drug (Acetaminophen 1 TAB) PO PRN (08:55)
[2021-07-25] MEDS ORDERED: predniSONE 20 mg tablet PO SCH (09:00)
[2021-07-25 11:00] VITALS: BP 151/69
[2021-07-25] MEDS ORDERED: ipratropium/albuterol 3ml nebule NEB SCH (11:00)
[2021-07-25] MEDS ORDERED: ALBU1.256 NEB (11:24)
[2021-07-25] MEDS ORDERED: PRED20TA PO (11:24)
[2021-07-25] MEDS ORDERED: DOXY-243 PO (11:24)
[2021-07-25] MEDS ORDERED: BUDE0.5A11 IH (11:24)
[2021-07-25] MEDS ORDERED: NITR0.4T51 SL (11:24)
[2021-07-25] MEDS ORDERED: IPRA3AMP9 NEB (11:24)
--- NOTE | 2021-07-25 11:26 | NUR ---
PAGER ID: [phone] MESSAGE: re: Juan Moody room [id number] just making sure you are awae pt's WBC is 13.4. thank you, Macarena richard [phone] will continue to monitor.
--- NOTE | 2021-07-25 14:40 | NUR ---
Pt stable and appropriate for discharge. PIV d/c'd cannula intact. D/c'd tele. Reviewed with pt and his all d/c instructions, meds, followup with pt/ given opportunity to ask questions, answers provided and pt/ verbalizing understanding. Prescriptions escripted to pharmacy of choice. Pt to call PCP for followup appt within one week, and to call PCP with questions/concerns or return to nearest ER with worsening symptoms. Pt/ states he has all personal belongings. Pt escorted to front lobby via w/c by staff member, accompanied by family and d/c'd home in private vehicle driven by family member.
[2021-07-25] MEDS ORDERED: budesonide 0.5mg/2ml UD nebule IH SCH (20:00)
[2021-07-25] MEDS ORDERED: carvedilol 6.25mg tablet PO SCH (20:00)
[2021-07-25] MEDS ORDERED: insulin glargine (Lantus) pen - multi-dose SQ SCH (21:00)
[2021-07-25] MEDS ORDERED: traZODone 50mg tablet PO SCH (21:00)
[2021-07-25] MEDS ORDERED: temazepam 15mg capsule PO PRN (21:00)
[2021-07-26] MEDS ORDERED: lisinopril 10 MG tablet PO SCH (08:00)
[2021-07-26] MEDS ORDERED: DHEA 25mg tablet PO SCH (08:00)
[2021-07-26] MEDS ORDERED: atorvastatin 20mg tablet PO SCH (08:00)
[2021-07-26] MEDS ORDERED: ferrous sulfate 325mg tablet PO SCH (08:00)
[2021-07-26] MEDS ORDERED: levoTHYROXINE 125mcg tablet PO SCH (08:00)
[2021-07-26] MEDS ORDERED: tamsulosin 0.4mg capsule PO SCH (08:00)
[2021-07-26] MEDS ORDERED: FLUoxetine 20mg capsule PO SCH (08:00)
[2021-07-26] MEDS ORDERED: pantoprazole 40mg Tablet.DR PO SCH (08:00)
[2021-07-26] MEDS ORDERED: docusate sod 100mg capsule PO SCH (08:00)
[2021-07-26] MEDS ORDERED: aspirin 81mg, enteric-coated 1 TAB TABLET.DR PO SCH (08:00)
[2021-07-26] MEDS ORDERED: cyanocobalamin 500mcg tablet PO SCH (08:00)
== END 2021-07-25 14:40 | disposition home health service (06) | DRG 190 ==
LOC: ER 22:11 → ED HOLD 07-25 02:01 → PCU 3S 07-25 07:35
PROVIDERS: ADMIT Family Medicine; ATTEND Family Medicine
DX: J44.1 Chronic obstructive pulmonary disease with (acute) exacerbation (principal); I50.23 Acute on chronic systolic (congestive) heart failure; I21.A1 Myocardial infarction type 2; I13.0 Hypertensive heart and chronic kidney disease with heart failure and stage 1 through stage 4 chronic kidney disease, or unspecified chronic kidney disease; J96.11 Chronic respiratory failure with hypoxia; N17.9 Acute kidney failure, unspecified; D64.9 Anemia, unspecified; E03.9 Hypothyroidism, unspecified; E11.22 Type 2 diabetes mellitus with diabetic chronic kidney disease; N18.30 Chronic kidney disease, stage 3 unspecified; E11.65 Type 2 diabetes mellitus with hyperglycemia; Z20.822 Contact with and (suspected) exposure to COVID-19; E78.00 Pure hypercholesterolemia, unspecified; T38.0X5A Adverse effect of glucocorticoids and synthetic analogues, initial encounter; I27.20 Pulmonary hypertension, unspecified; E78.5 Hyperlipidemia, unspecified; F17.210 Nicotine dependence, cigarettes, uncomplicated; G89.4 Chronic pain syndrome; I25.2 Old myocardial infarction; Z79.4 Long term (current) use of insulin; Z79.899 Other long term (current) drug therapy; Z86.73 Personal history of transient ischemic attack (TIA), and cerebral infarction without residual deficits; Z88.0 Allergy status to penicillin; Z99.81 Dependence on supplemental oxygen; Z79.82 Long term (current) use of aspirin; Z71.6 Tobacco abuse counseling; Y92.89 Other specified places as the place of occurrence of the external cause
CPT/HCPCS: 36415; 71045; 80053; 81001; 82948; 83036; 83605; 83735; 83880; 84100; 84443; 84484; 85025; 85379; 85610; 85730; 87040; 87081; 87635; 93005; 94640; 94760; 99285; A7015; G0378; J0456; J1644; J1815; J1940; J2930; J7512

== ENCOUNTER 2022-04-14 20:54 | Inpatient (IN) | payer MEDICARE ==
[~2022-04-14] VITALS: Ht 170.2 cm; Wt 110.1 kg
[~2022-04-14 20:54] MED LIST changes: -ACET-75 PO; +ALBU1.257 NEB; -ALBU8.5H17 INH; -ASPI-100 PO; +ASPI81TA52 PO; +CARV12.529 PO; -CARV6.253 PO; -CYAN50009 PO; -DOCU-21 PO; +DOCU100C40 PO; -FURO-150 PO; -GABA300C PO; -IPRA3AMP9 NEB; -LISI10TA27 PO; -MUPI22OI30 TOP; +NICO-631 TD; +NITR0.4T51 SL; +NYSPWD TP; -PANT-47 PO; -PRAS25CA PO; -PRED10TA23 PO
[2022-04-14 23:02] LABS: BASOPHILS % (AUTO) 0.6 % (0-1); EOSINOPHILS # (AUTO) 0.5 X10'3 (0-0.9); EOSINOPHILS % (AUTO) 5.6 % (0-6); HEMATOCRIT 25.7 % (42.0-52.0); HEMOGLOBIN 8.5 g/dl (14.0-17.9); LYMPHOCYTES # (AUTO) 2.9 X10'3 (1.1-4.8); LYMPHOCYTES % (AUTO) 33.3 % (21-51); MEAN CORPUSCULAR HEMOGLOBIN 30.7 PG (27.0-31.0); MEAN CORPUSCULAR HGB CONC 33.1 g/dL (33.0-36.5); MEAN CORPUSCULAR VOLUME 92.8 FL (78-98); MEAN PLATELET VOLUME 9.4 FL (7.4-10.4); MONOCYTES # (AUTO) 0.8 X10'3 (0-0.9); MONOCYTES % (AUTO) 9.4 % (2-12); NEUTROPHILS # (AUTO) 4.5 X10'3 (1.8-7.7); NEUTROPHILS % (AUTO) 51.1 % (42-75); PLATELET COUNT 133 X10'3 (140-440); RED BLOOD COUNT 2.77 X10'6 (4.70-6.10); RED CELL DISTRIBUTION WIDTH 14.7 % (11.5-14.5); WHITE BLOOD COUNT 8.8 X10'3 (4.5-11.0)
[2022-04-14 23:22] LABS: ALANINE AMINOTRANSFERASE 20 U/L (12-78); ALBUMIN 3.3 G/DL (3.4-5.0); ALBUMIN/GLOBULIN RATIO 1.1 (1.1-1.5); ALKALINE PHOSPHATASE 110 IU/L (46-116); ANION GAP 4 (8-16); ASPARTATE AMINO TRANSFERASE 15 U/L (10-37); BILIRUBIN,TOTAL 0.5 MG/DL (0.1-1.0); BLOOD UREA NITROGEN 60 MG/DL (7-18); BUN/CREATININE RATIO 21.7 (5.4-32.0); CALCIUM 8.4 MG/DL (8.5-10.1); CHLORIDE 104 MMOL/L (99-107); CREATININE 2.76 MG/DL (0.60-1.10); GLUCOSE 173 MG/DL (70-104); POTASSIUM 4.3 MMOL/L (3.5-5.1); SODIUM 136 MMOL/L (135-145); TOTAL CARBON DIOXIDE 27.9 MMOL/L (24-32); TOTAL PROTEIN 6.4 G/DL (6.4-8.2); eGFR 23 ML/MIN
[2022-04-15] MEDS ORDERED: furosemide 10 MG/1 ML 10ml inj IV ONE (00:15)
[2022-04-15] MEDS ORDERED: morphine 2 MG/ML inj. syringe IV PRN (01:40)
[2022-04-15] MEDS ORDERED: bisacodyl 10mg suppository rectal RC PRN (01:40)
[2022-04-15] MEDS ORDERED: magnesium hydroxide 30ml (MOM) UD suspension PO PRN (01:40)
[2022-04-15] MEDS ORDERED: diphenhydrAMINE 25mg capsule PO PRN (01:40)
[2022-04-15] MEDS ORDERED: acetaminophen 325mg tablet PO PRN (01:40)
[2022-04-15] MEDS ORDERED: ondansetron 4mg rapidly disintigrating tab PO PRN (01:40)
[2022-04-15] MEDS ORDERED: diphenhydrAMINE 50 mg/ml inj IV PRN (01:40)
[2022-04-15] MEDS ORDERED: HYDROmorphone inj. 0.5 MG/0.5 ML DISP.SYRIN IV PRN (01:40)
[2022-04-15] MEDS ORDERED: mag hydrox/Alum hydrox/simeth 30ml oral suspension PO PRN (01:40)
[2022-04-15] MEDS ORDERED: glucagon, human recombinant 1mg kit SUBCUT PRN (01:45)
[2022-04-15] MEDS ORDERED: DEXTROSE 15 GM of carb/4 tabs (each vial/BOTTLE has 4 tablets) PO PRN ×2 (01:45)
[2022-04-15] MEDS ORDERED: MESSAGE TO PHARMACY PO ONE (01:45)
[2022-04-15] MEDS ORDERED: dextrose 50%-water 50ml dispensing syringe IV PRN ×2 (01:45)
[2022-04-15] MEDS ORDERED: FURO40TA4 PO (01:48)
[2022-04-15 01:59] LABS: APTT 28 SECONDS (22-32); D-DIMER 1.26 MG/L FEU (0-0.50)
[2022-04-15 02:05] LABS: CREATINE KINASE 243 U/L (39-308); LIPASE 146 U/L (73-393); MAGNESIUM 2.1 MG/DL (1.5-2.4); PHOSPHORUS 4.2 MG/DL (2.3-4.5)
[2022-04-15] MEDS ORDERED: albuterol 2.5 MG/3 ML nebule NEB PRN (03:20)
--- NOTE | 2022-04-15 06:01 | NUR ---
Patient requesting his PRN breathing treatment as he is having increased difficulty breathing. RT paged.
[2022-04-15] MEDS: heparin, porcine 5000 units/ml vial SQ SCH ×2 (07:55→17:09)
[2022-04-15] MEDS: furosemide 20 MG/2 ML vial IV SCH ×2 (07:55→20:46)
[2022-04-15] MEDS: methylPREDNISolone sod succ 125mg/2ml vial IV SCH ×2 (07:55→20:46)
[2022-04-15] MEDS: atorvastatin 20mg tablet PO SCH (07:56)
[2022-04-15] MEDS: levoTHYROXINE 125mcg tablet PO SCH (07:56)
[2022-04-15] MEDS: aspirin 81mg, enteric-coated 1 TAB TABLET.DR PO SCH (07:56)
[2022-04-15] MEDS: pantoprazole 40mg Tablet.DR PO SCH (07:56)
[2022-04-15] MEDS: FLUoxetine 20mg capsule PO SCH (07:56)
[2022-04-15] MEDS: carVEDilol 12.5mg tablet PO SCH ×2 (07:56→20:46)
[2022-04-15] MEDS: docusate sod 100mg capsule PO SCH ×2 (08:00→20:46)
[2022-04-15] MEDS: nitroGLYCERIN 0.2mg/hour patch TD SCH (08:31)
--- NOTE | 2022-04-15 08:34 | NUR ---
breakfast tray provided for pt. sitting in bed, tolerating well.
[2022-04-15] MEDS: ondansetron/PF 4mg/2ml inj IV PRN (09:52)
[2022-04-15] MEDS: albuterol 2.5 MG/3 ML nebule NEB SCH ×3 (11:18→19:01)
[2022-04-15] MEDS ORDERED: temazepam 15mg capsule PO PRN (21:00)
[2022-04-16] MEDS: heparin, porcine 5000 units/ml vial SQ SCH ×4 (01:13→23:27)
[2022-04-16] MEDS: insulin glargine (Lantus) pen - multi-dose SQ SCH ×2 (01:29→21:43)
[2022-04-16] MEDS: ipratropium/albuterol 3ml nebule NEB PRN (01:41)
[2022-04-16 02:19] LABS: BASOPHILS % (AUTO) 0.2 % (0-1); EOSINOPHILS % (AUTO) 0.1 % (0-6); HEMATOCRIT 27.6 % (42.0-52.0); HEMOGLOBIN 9.2 g/dl (14.0-17.9); LYMPHOCYTES # (AUTO) 2.3 X10'3 (1.1-4.8); LYMPHOCYTES % (AUTO) 24.7 % (21-51); MEAN CORPUSCULAR HEMOGLOBIN 30.6 PG (27.0-31.0); MEAN CORPUSCULAR HGB CONC 33.4 g/dL (33.0-36.5); MEAN CORPUSCULAR VOLUME 91.5 FL (78-98); MEAN PLATELET VOLUME 9.5 FL (7.4-10.4); MONOCYTES # (AUTO) 0.1 X10'3 (0-0.9); MONOCYTES % (AUTO) 1.5 % (2-12); NEUTROPHILS # (AUTO) 6.8 X10'3 (1.8-7.7); NEUTROPHILS % (AUTO) 73.5 % (42-75); PLATELET COUNT 168 X10'3 (140-440); RED BLOOD COUNT 3.02 X10'6 (4.70-6.10); WHITE BLOOD COUNT 9.3 X10'3 (4.5-11.0)
[2022-04-16 02:38] LABS: ALANINE AMINOTRANSFERASE 20 U/L (12-78); ALBUMIN 3.6 G/DL (3.4-5.0); ALKALINE PHOSPHATASE 117 IU/L (46-116); ANION GAP 12 (8-16); ASPARTATE AMINO TRANSFERASE 20 U/L (10-37); BILIRUBIN,TOTAL 0.8 MG/DL (0.1-1.0); BLOOD UREA NITROGEN 74 MG/DL (7-18); BUN/CREATININE RATIO 24.7 (5.4-32.0); CALCIUM 9.7 MG/DL (8.5-10.1); CHLORIDE 101 MMOL/L (99-107); CHOL/HDL RATIO 2.6 (0.00-4.99); CHOLESTEROL 118 MG/DL (0-200); CREATININE 2.99 MG/DL (0.60-1.10); GLUCOSE 280 MG/DL (70-104); HDL CHOLESTEROL 46 MG/DL (35-60); LDL CHOLESTEROL 62 MG/DL (50-100); POTASSIUM 4.8 MMOL/L (3.5-5.1); SODIUM 139 MMOL/L (135-145); TOTAL CARBON DIOXIDE 26.3 MMOL/L (24-32); TOTAL PROTEIN 7.1 G/DL (6.4-8.2); TRIGLYCERIDES 52 MG/DL (20-135); eGFR 21 ML/MIN
[2022-04-16] MEDS: albuterol 2.5 MG/3 ML nebule NEB SCH ×4 (07:15→19:20)
[2022-04-16] MEDS: furosemide 20 MG/2 ML vial IV SCH ×2 (07:21→21:33)
[2022-04-16] MEDS: methylPREDNISolone sod succ 125mg/2ml vial IV SCH ×2 (07:25→21:33)
[2022-04-16] MEDS: docusate sod 100mg capsule PO SCH ×2 (07:26→21:33)
[2022-04-16] MEDS: FLUoxetine 20mg capsule PO SCH (07:26)
[2022-04-16] MEDS: aspirin 81mg, enteric-coated 1 TAB TABLET.DR PO SCH (07:27)
[2022-04-16] MEDS: carVEDilol 12.5mg tablet PO SCH ×2 (07:27→21:33)
[2022-04-16] MEDS: levoTHYROXINE 125mcg tablet PO SCH (07:27)
[2022-04-16] MEDS: pantoprazole 40mg Tablet.DR PO SCH (07:27)
[2022-04-16] MEDS: atorvastatin 20mg tablet PO SCH (07:27)
[2022-04-16] MEDS: nitroGLYCERIN 0.2mg/hour patch TD SCH (07:31)
[2022-04-16 23:01] VITALS: BP 139/73
--- NOTE | 2022-04-17 00:44 | NUR ---
patient up in recliner, requesting to get to bed, up with 2 staff members. Patient also c/o shortness of breath and requesting PRN leatha, RN paged RT. O2 sat checked and patient 100% on 3L, uses 2L at home, RN turned O2 down and instructed that wit COPD patients if oxygen level gets too high it can cause patient to feel short of breath. RN instructed patient he can take O2 off for min if still feeling SOB and let oxygen level trend down.
[2022-04-17] MEDS: ipratropium/albuterol 3ml nebule NEB PRN (00:50)
[2022-04-17 02:00] VITALS: BP 122/62
[2022-04-17 06:00] VITALS: BP 137/83
[2022-04-17 07:19] LABS: BASOPHILS % (AUTO) 0 % (0-1); EOSINOPHILS % (AUTO) 0 % (0-6); HEMATOCRIT 27.2 % (42.0-52.0); HEMOGLOBIN 8.9 g/dl (14.0-17.9); LYMPHOCYTES # (AUTO) 2.9 X10'3 (1.1-4.8); LYMPHOCYTES % (AUTO) 21.5 % (21-51); MEAN CORPUSCULAR HEMOGLOBIN 30.2 PG (27.0-31.0); MEAN CORPUSCULAR HGB CONC 32.7 g/dL (33.0-36.5); MEAN CORPUSCULAR VOLUME 92.4 FL (78-98); MEAN PLATELET VOLUME 9.4 FL (7.4-10.4); MONOCYTES # (AUTO) 0.5 X10'3 (0-0.9); MONOCYTES % (AUTO) 3.7 % (2-12); NEUTROPHILS # (AUTO) 10.1 X10'3 (1.8-7.7); NEUTROPHILS % (AUTO) 74.8 % (42-75); PLATELET COUNT 176 X10'3 (140-440); RED BLOOD COUNT 2.95 X10'6 (4.70-6.10); WHITE BLOOD COUNT 13.4 X10'3 (4.5-11.0)
[2022-04-17] MEDS: albuterol 2.5 MG/3 ML nebule NEB SCH ×4 (07:25→19:59)
[2022-04-17 07:47] LABS: ALANINE AMINOTRANSFERASE 26 U/L (12-78); ALBUMIN 3.6 G/DL (3.4-5.0); ALBUMIN/GLOBULIN RATIO 1.1 (1.1-1.5); ALKALINE PHOSPHATASE 101 IU/L (46-116); ANION GAP 11 (8-16); ASPARTATE AMINO TRANSFERASE 28 U/L (10-37); BILIRUBIN,TOTAL 0.6 MG/DL (0.1-1.0); BLOOD UREA NITROGEN 95 MG/DL (7-18); BUN/CREATININE RATIO 27.5 (5.4-32.0); CALCIUM 8.9 MG/DL (8.5-10.1); CHLORIDE 102 MMOL/L (99-107); CREATININE 3.46 MG/DL (0.60-1.10); GLUCOSE 280 MG/DL (70-104); POTASSIUM 4.8 MMOL/L (3.5-5.1); SODIUM 141 MMOL/L (135-145); TOTAL PROTEIN 6.9 G/DL (6.4-8.2); eGFR 17 ML/MIN
[2022-04-17] MEDS: heparin, porcine 5000 units/ml vial SQ SCH ×3 (08:19→16:43)
[2022-04-17] MEDS: furosemide 20 MG/2 ML vial IV SCH ×2 (08:19→21:34)
[2022-04-17] MEDS: methylPREDNISolone sod succ 125mg/2ml vial IV SCH ×2 (08:19→21:31)
[2022-04-17] MEDS: aspirin 81mg, enteric-coated 1 TAB TABLET.DR PO SCH (08:20)
[2022-04-17] MEDS: FLUoxetine 20mg capsule PO SCH (08:20)
[2022-04-17] MEDS: nitroGLYCERIN 0.2mg/hour patch TD SCH (08:20)
[2022-04-17] MEDS: docusate sod 100mg capsule PO SCH ×2 (08:20→21:32)
[2022-04-17] MEDS: HYDROcodone/acetaminophen 10/325mg tab PO PRN (08:20)
[2022-04-17] MEDS: levoTHYROXINE 125mcg tablet PO SCH (08:20)
[2022-04-17] MEDS: pantoprazole 40mg Tablet.DR PO SCH (08:21)
[2022-04-17] MEDS: atorvastatin 20mg tablet PO SCH (08:21)
[2022-04-17] MEDS: carVEDilol 12.5mg tablet PO SCH ×2 (08:21→21:31)
--- NOTE | 2022-04-17 09:19 | NUR ---
msg sent to [facility]: [id number] [place]: Pt very red,swollen and painful in groin/scrotal area. Order needed for medication to help with this rash. Thank you. Shaye MALAVE [phone]
[2022-04-17] MEDS: insulin Lispro (HumaLOG) vial - multi-dose SQ SCH ×4 (09:35→21:23)
[2022-04-17 11:00] VITALS: BP 123/78
[2022-04-17] MEDS ORDERED: nystatin 15 GM powder TP SCH ×2 (13:00→20:00)
[2022-04-17] MEDS: ondansetron/PF 4mg/2ml inj IV PRN (17:12)
[2022-04-17] MEDS: morphine 2 MG/ML inj. syringe IV PRN (17:13)
[2022-04-17] MEDS: nystatin 15 GM powder TP SCH ×2 (17:28→21:34)
[2022-04-17 18:00] VITALS: BP 122/59
--- NOTE | 2022-04-17 18:50 | NUR ---
Problems reprioritized. Patient report given, questions answered & plan of care reviewed with ANANDA Wilson.
--- NOTE | 2022-04-17 19:01 | NUR ---
Patient in room PCU 3027. I have received report from Ewelina MALAVE and had the opportunity to ask questions and assume patient care.
[2022-04-17] MEDS: insulin glargine (Lantus) pen - multi-dose SQ SCH (21:22)
[2022-04-17 22:00] VITALS: BP 123/68
[2022-04-18] VITALS (7 sets, daily range): BP systolic 116–132; BP diastolic 63–72
[2022-04-18] MEDS: heparin, porcine 5000 units/ml vial SQ SCH ×4 (00:19→23:05)
--- NOTE | 2022-04-18 06:25 | NUR ---
Patient in room PCU 3027. I have received report from ANANDA Wilson and had the opportunity to ask questions and assume patient care.
--- NOTE | 2022-04-18 06:31 | NUR ---
Problems reprioritized. Patient report given, questions answered & plan of care reviewed with Ewelina RN.
[2022-04-18 06:52] LABS: BASOPHILS % (AUTO) 0 % (0-1); EOSINOPHILS % (AUTO) 0 % (0-6); HEMATOCRIT 27.3 % (42.0-52.0); LYMPHOCYTES # (AUTO) 2.5 X10'3 (1.1-4.8); LYMPHOCYTES % (AUTO) 24.9 % (21-51); MEAN CORPUSCULAR HEMOGLOBIN 30.2 PG (27.0-31.0); MEAN CORPUSCULAR HGB CONC 33.1 g/dL (33.0-36.5); MEAN CORPUSCULAR VOLUME 91.2 FL (78-98); MEAN PLATELET VOLUME 9.8 FL (7.4-10.4); MONOCYTES # (AUTO) 0.2 X10'3 (0-0.9); MONOCYTES % (AUTO) 2.4 % (2-12); NEUTROPHILS # (AUTO) 7.4 X10'3 (1.8-7.7); NEUTROPHILS % (AUTO) 72.7 % (42-75); PLATELET COUNT 174 X10'3 (140-440); RED BLOOD COUNT 2.99 X10'6 (4.70-6.10); RED CELL DISTRIBUTION WIDTH 14.6 % (11.5-14.5); WHITE BLOOD COUNT 10.1 X10'3 (4.5-11.0)
[2022-04-18 07:04] LABS: ALANINE AMINOTRANSFERASE 27 U/L (12-78); ALBUMIN 3.7 G/DL (3.4-5.0); ALBUMIN/GLOBULIN RATIO 1.1 (1.1-1.5); ALKALINE PHOSPHATASE 92 IU/L (46-116); ANION GAP 10 (8-16); ASPARTATE AMINO TRANSFERASE 24 U/L (10-37); BILIRUBIN,TOTAL 0.6 MG/DL (0.1-1.0); BLOOD UREA NITROGEN 112 MG/DL (7-18); CALCIUM 9.1 MG/DL (8.5-10.1); CHLORIDE 101 MMOL/L (99-107); CREATININE 3.29 MG/DL (0.60-1.10); GLUCOSE 211 MG/DL (70-104); POTASSIUM 4.9 MMOL/L (3.5-5.1); SODIUM 139 MMOL/L (135-145); TOTAL CARBON DIOXIDE 28.4 MMOL/L (24-32); eGFR 18 ML/MIN
[2022-04-18] MEDS: albuterol 2.5 MG/3 ML nebule NEB SCH ×6 (07:08→22:41)
--- NOTE | 2022-04-18 08:00 | NUR ---
Pt refuses to get into bed for weight & unable to safely get on standing scale
[2022-04-18] MEDS: methylPREDNISolone sod succ 125mg/2ml vial IV SCH (09:13)
[2022-04-18] MEDS: levoTHYROXINE 125mcg tablet PO SCH (09:13)
[2022-04-18] MEDS: atorvastatin 20mg tablet PO SCH (09:13)
[2022-04-18] MEDS: carVEDilol 12.5mg tablet PO SCH ×2 (09:13→20:08)
[2022-04-18] MEDS: FLUoxetine 20mg capsule PO SCH (09:13)
[2022-04-18] MEDS: furosemide 20 MG/2 ML vial IV SCH (09:13)
[2022-04-18] MEDS: docusate sod 100mg capsule PO SCH ×2 (09:13→20:08)
[2022-04-18] MEDS: pantoprazole 40mg Tablet.DR PO SCH (09:13)
[2022-04-18] MEDS: aspirin 81mg, enteric-coated 1 TAB TABLET.DR PO SCH (09:13)
[2022-04-18] MEDS: nitroGLYCERIN 0.2mg/hour patch TD SCH (09:14)
[2022-04-18] MEDS: nystatin 15 GM powder TP SCH ×2 (09:17→20:09)
[2022-04-18] MEDS: insulin Lispro (HumaLOG) vial - multi-dose SQ SCH ×3 (09:36→19:35)
[2022-04-18] MEDS: morphine 2 MG/ML inj. syringe IV PRN (11:58)
[2022-04-18] MEDS: ondansetron/PF 4mg/2ml inj IV PRN (12:00)
--- NOTE | 2022-04-18 13:09 | NUR ---
Pt refuses FC. notified.
--- NOTE | 2022-04-18 13:30 | NUR ---
Problems reprioritized. Patient report given, questions answered & plan of care reviewed with ANANDA Correa.
[2022-04-18] MEDS: fluconazole 100mg tablet PO SCH (13:45)
[2022-04-18] MEDS: DOBUTamine-DoBUTrex 500mg/D5W 250 ML IV SCH (15:42)
--- NOTE | 2022-04-18 19:56 | NUR ---
Problems reprioritized. Patient report given, questions answered & plan of care reviewed with Josette MALAVE.
[2022-04-18] MEDS: insulin glargine (Lantus) pen - multi-dose SQ SCH (20:26)
[2022-04-18] MEDS: HYDROcodone/acetaminophen 10/325mg tab PO PRN ×2 (20:38→21:14)
[2022-04-19 02:00] VITALS: BP 14/76
[2022-04-19] MEDS: albuterol 2.5 MG/3 ML nebule NEB SCH ×6 (03:00→22:43)
[2022-04-19 06:00] VITALS: BP 147/67
--- NOTE | 2022-04-19 06:11 | NUR ---
Problems reprioritized. Patient report given, questions answered & plan of care reviewed with ANANDA Alcala.
[2022-04-19 06:24] LABS: BASOPHILS % (AUTO) 0 % (0-1); EOSINOPHILS % (AUTO) 0 % (0-6); HEMATOCRIT 27.6 % (42.0-52.0); LYMPHOCYTES # (AUTO) 3.7 X10'3 (1.1-4.8); LYMPHOCYTES % (AUTO) 32.9 % (21-51); MEAN CORPUSCULAR HEMOGLOBIN 29.9 PG (27.0-31.0); MEAN CORPUSCULAR HGB CONC 32.6 g/dL (33.0-36.5); MEAN CORPUSCULAR VOLUME 91.8 FL (78-98); MEAN PLATELET VOLUME 9.3 FL (7.4-10.4); MONOCYTES # (AUTO) 0.9 X10'3 (0-0.9); MONOCYTES % (AUTO) 7.5 % (2-12); NEUTROPHILS # (AUTO) 6.8 X10'3 (1.8-7.7); NEUTROPHILS % (AUTO) 59.6 % (42-75); PLATELET COUNT 175 X10'3 (140-440); RED BLOOD COUNT 3.01 X10'6 (4.70-6.10); RED CELL DISTRIBUTION WIDTH 14.2 % (11.5-14.5); WHITE BLOOD COUNT 11.4 X10'3 (4.5-11.0)
[2022-04-19 06:31] LABS: ALANINE AMINOTRANSFERASE 31 U/L (12-78); ALBUMIN 3.7 G/DL (3.4-5.0); ALBUMIN/GLOBULIN RATIO 1.2 (1.1-1.5); ALKALINE PHOSPHATASE 86 IU/L (46-116); ANION GAP 10 (8-16); ASPARTATE AMINO TRANSFERASE 24 U/L (10-37); BILIRUBIN,TOTAL 0.6 MG/DL (0.1-1.0); BLOOD UREA NITROGEN 122 MG/DL (7-18); BUN/CREATININE RATIO 36.9 (5.4-32.0); CALCIUM 8.9 MG/DL (8.5-10.1); CHLORIDE 102 MMOL/L (99-107); CREATININE 3.31 MG/DL (0.60-1.10); GLUCOSE 89 MG/DL (70-104); SODIUM 141 MMOL/L (135-145); TOTAL CARBON DIOXIDE 29.3 MMOL/L (24-32); TOTAL PROTEIN 6.9 G/DL (6.4-8.2); eGFR 18 ML/MIN
[2022-04-19] MEDS ORDERED: predniSONE 20 mg tablet PO SCH (08:00)
[2022-04-19] MEDS: heparin, porcine 5000 units/ml vial SQ SCH ×3 (08:38→23:08)
[2022-04-19] MEDS: docusate sod 100mg capsule PO SCH ×2 (08:40→20:19)
[2022-04-19] MEDS: carVEDilol 12.5mg tablet PO SCH ×2 (08:40→20:18)
[2022-04-19] MEDS: HYDROcodone/acetaminophen 10/325mg tab PO PRN (08:40)
[2022-04-19] MEDS: atorvastatin 20mg tablet PO SCH (08:41)
[2022-04-19] MEDS: pantoprazole 40mg Tablet.DR PO SCH (08:41)
[2022-04-19] MEDS: aspirin 81mg, enteric-coated 1 TAB TABLET.DR PO SCH (08:41)
[2022-04-19] MEDS: FLUoxetine 20mg capsule PO SCH (08:41)
[2022-04-19] MEDS: nitroGLYCERIN 0.2mg/hour patch TD SCH (08:41)
[2022-04-19] MEDS: levoTHYROXINE 125mcg tablet PO SCH (08:42)
[2022-04-19] MEDS: nystatin 15 GM powder TP SCH ×2 (08:43→20:19)
[2022-04-19] MEDS: fluconazole 100mg tablet PO SCH (08:43)
[2022-04-19] MEDS: insulin Lispro (HumaLOG) vial - multi-dose SQ SCH ×2 (09:00→15:18)
--- NOTE | 2022-04-19 10:00 | NUR ---
Initial: Pt admitted w/ acute on chronic CHF, COPD w/ exacerbation and OMKAR/CKD per EMR. Currently on Carb control diet w/ avg intake 62% x 6 meals partially meeting needs. Pt could benefit from Ensure Enlive TID to help meet increased needs. Recommend liberalizing to Regular diet given A1c 6.5 and elevated BG likely impacted by steroids. LBM 04/17 receiving routine colace. Will continue to monitor. Recs: 1. Liberalize to Regular diet 2. Ensure Enlive TID; pending MD verification 3. Bowel care per rx 4. Weekly wts Addendum: 04/19/22 at [address] Amended: Links added.
[2022-04-19 11:00] VITALS: BP 128/63
[2022-04-19] MEDS: lactose-reduced food (Ensure Enlive) - 237ml bottle PO SCH ×2 (13:00→18:00)
[2022-04-19 18:00] VITALS: BP 127/91
[2022-04-19] MEDS: insulin glargine (Lantus) pen - multi-dose SQ SCH (21:03)
[2022-04-19 22:30] VITALS: BP 140/77
--- NOTE | 2022-04-19 22:32 | NUR ---
u/a sent to lab Addendum: 04/19/22 at 2233 by Emmanuel Lerma RN Amended: Links added.
[2022-04-19 22:40] LABS: CLARITY,URINE CLEAR (Clear); COLOR,URINE YELLOW (Yellow); GLUCOSE, URINE NEGATIVE (Neg); KETONES,URINE NEGATIVE (Neg); LEUKOCYTE ESTERASE ,URINE TRACE (Neg); NITRITES, URINE NEGATIVE (Neg); OCCULT BLOOD,URINE TRACE-INTACT (Neg); PROTEIN,URINE 30 mg/dl (Neg); UROBILINOGEN,URINE 0.2 E.U/dL (0.2-1.0)
[2022-04-19 22:41] LABS: UA COLLECTION TYPE CLN CATCH MIDSTREAM
[2022-04-19 22:48] LABS: WBC,URINE 0-4 /HPF (0-4)
[2022-04-19 22:49] LABS: BACTERIA,URINE FEW /HPF (Neg); MUCUS STRANDS NONE SEEN /LPF (Neg); SQUAMOUS EPITHELIAL CELL,UR FEW /LPF (FEW)
[2022-04-19] MEDS: DOBUTamine-DoBUTrex 500mg/D5W 250 ML IV SCH (23:07)
[2022-04-20 02:00] VITALS: BP 153/86
[2022-04-20] MEDS: albuterol 2.5 MG/3 ML nebule NEB SCH ×6 (02:06→23:00)
[2022-04-20 06:00] VITALS: BP 117/62
[2022-04-20 06:13] LABS: BASOPHILS % (AUTO) 0 % (0-1); EOSINOPHILS % (AUTO) 0 % (0-6); HEMATOCRIT 27.6 % (42.0-52.0); HEMOGLOBIN 8.9 g/dl (14.0-17.9); LYMPHOCYTES # (AUTO) 4.4 X10'3 (1.1-4.8); LYMPHOCYTES % (AUTO) 38.4 % (21-51); MEAN CORPUSCULAR HEMOGLOBIN 29.8 PG (27.0-31.0); MEAN CORPUSCULAR HGB CONC 32.4 g/dL (33.0-36.5); MEAN PLATELET VOLUME 9.3 FL (7.4-10.4); MONOCYTES % (AUTO) 8.7 % (2-12); NEUTROPHILS # (AUTO) 6.1 X10'3 (1.8-7.7); NEUTROPHILS % (AUTO) 52.9 % (42-75); PLATELET COUNT 163 X10'3 (140-440); RED CELL DISTRIBUTION WIDTH 14.7 % (11.5-14.5); WHITE BLOOD COUNT 11.6 X10'3 (4.5-11.0)
[2022-04-20 06:22] LABS: ALANINE AMINOTRANSFERASE 32 U/L (12-78); ALBUMIN 3.5 G/DL (3.4-5.0); ALBUMIN/GLOBULIN RATIO 1.2 (1.1-1.5); ALKALINE PHOSPHATASE 81 IU/L (46-116); ANION GAP 8 (8-16); ASPARTATE AMINO TRANSFERASE 29 U/L (10-37); BILIRUBIN,TOTAL 0.6 MG/DL (0.1-1.0); BLOOD UREA NITROGEN 109 MG/DL (7-18); BUN/CREATININE RATIO 33.3 (5.4-32.0); CALCIUM 8.9 MG/DL (8.5-10.1); CHLORIDE 105 MMOL/L (99-107); CREATININE 3.27 MG/DL (0.60-1.10); GLUCOSE 178 MG/DL (70-104); POTASSIUM 4.3 MMOL/L (3.5-5.1); SODIUM 143 MMOL/L (135-145); TOTAL CARBON DIOXIDE 30.1 MMOL/L (24-32); TOTAL PROTEIN 6.5 G/DL (6.4-8.2); eGFR 19 ML/MIN
--- NOTE | 2022-04-20 06:25 | NUR ---
Patient in room PCU 3027. I have received report from Dave Mcgee and had the opportunity to ask questions and assume patient care.
[2022-04-20] MEDS: lactose-reduced food (Ensure Enlive) - 237ml bottle PO SCH ×3 (08:00→18:03)
[2022-04-20] MEDS: nitroGLYCERIN 0.2mg/hour patch TD SCH (08:00)
[2022-04-20] MEDS: pantoprazole 40mg Tablet.DR PO SCH (08:00)
[2022-04-20] MEDS: nystatin 15 GM powder TP SCH ×2 (09:17→19:21)
[2022-04-20] MEDS: docusate sod 100mg capsule PO SCH ×2 (09:18→19:13)
[2022-04-20] MEDS: predniSONE 20 mg tablet PO SCH (09:18)
[2022-04-20] MEDS: levoTHYROXINE 125mcg tablet PO SCH (09:19)
[2022-04-20] MEDS: aspirin 81mg, enteric-coated 1 TAB TABLET.DR PO SCH (09:19)
[2022-04-20] MEDS: atorvastatin 20mg tablet PO SCH (09:19)
[2022-04-20] MEDS: carVEDilol 12.5mg tablet PO SCH ×2 (09:19→19:13)
[2022-04-20] MEDS: FLUoxetine 20mg capsule PO SCH (09:19)
[2022-04-20] MEDS: heparin, porcine 5000 units/ml vial SQ SCH ×2 (09:20→15:48)
[2022-04-20] MEDS: insulin Lispro (HumaLOG) vial - multi-dose SQ SCH ×2 (09:24→19:11)
[2022-04-20] MEDS: HYDROcodone/acetaminophen 10/325mg tab PO PRN (09:47)
[2022-04-20 11:00] VITALS: BP 126/71
[2022-04-20] MEDS: fluconazole 100mg tablet PO SCH (11:07)
[2022-04-20 15:00] VITALS: BP 131/71
[2022-04-20] MEDS: isosorbide mononitrate 30mg tab.SR.24H PO SCH (15:48)
[2022-04-20] MEDS: HYDROcodone/acetaminophen 5mg/325mg tablet PO PRN (17:32)
[2022-04-20] MEDS: phenazopyridine 100mg tablet PO SCH (17:33)
[2022-04-20 18:00] VITALS: BP 107/70
--- NOTE | 2022-04-20 18:34 | NUR ---
Problems reprioritized. Patient report given, questions answered & plan of care reviewed with Latoya MALAVE, patient stable at transfer of care.
[2022-04-20] MEDS: insulin glargine (Lantus) pen - multi-dose SQ SCH (21:20)
[2022-04-20] MEDS: hydrALAZINE 25 MG tablet PO SCH (21:29)
[2022-04-20 22:00] VITALS: BP 117/64
[2022-04-21] VITALS (9 sets, daily range): BP systolic 80–136; BP diastolic 46–77
[2022-04-21] MEDS: heparin, porcine 5000 units/ml vial SQ SCH ×3 (00:33→21:00)
--- NOTE | 2022-04-21 00:36 | NUR ---
Patient sleeping in chair. I have asked patient several times to allow me to help him back to bed. Edu. given regarding concern for further skin breakdown from pressure of sitting and not repositioning. Patient continues to refuse to return to bed.
[2022-04-21] MEDS: albuterol 2.5 MG/3 ML nebule NEB SCH ×6 (03:00→23:03)
[2022-04-21] MEDS: DOBUTamine-DoBUTrex 500mg/D5W 250 ML IV SCH (06:04)
--- NOTE | 2022-04-21 06:26 | NUR ---
Patient in room PCU 3027. I have received report from Latoya MALAVE and had the opportunity to ask questions and assume patient care.
[2022-04-21] MEDS: docusate sod 100mg capsule PO SCH ×2 (07:57→21:00)
[2022-04-21] MEDS: fluconazole 100mg tablet PO SCH (07:57)
[2022-04-21] MEDS: FLUoxetine 20mg capsule PO SCH (07:58)
[2022-04-21] MEDS: carVEDilol 12.5mg tablet PO SCH ×2 (07:58→21:00)
[2022-04-21] MEDS: levoTHYROXINE 125mcg tablet PO SCH (07:58)
[2022-04-21] MEDS: predniSONE 20 mg tablet PO SCH (07:58)
[2022-04-21] MEDS: isosorbide mononitrate 30mg tab.SR.24H PO SCH (07:58)
[2022-04-21] MEDS: atorvastatin 20mg tablet PO SCH (07:58)
[2022-04-21] MEDS: aspirin 81mg, enteric-coated 1 TAB TABLET.DR PO SCH (07:59)
[2022-04-21] MEDS: phenazopyridine 100mg tablet PO SCH ×2 (07:59→21:00)
[2022-04-21] MEDS: pantoprazole 40mg Tablet.DR PO SCH (07:59)
[2022-04-21] MEDS: hydrALAZINE 25 MG tablet PO SCH ×2 (07:59→20:40)
[2022-04-21] MEDS: lactose-reduced food (Ensure Enlive) - 237ml bottle PO SCH (08:00)
[2022-04-21] MEDS: nitroGLYCERIN 0.2mg/hour patch TD SCH (08:00)
[2022-04-21] MEDS: nystatin 15 GM powder TP SCH ×2 (08:04→20:00)
[2022-04-21] MEDS: insulin Lispro (HumaLOG) vial - multi-dose SQ SCH ×2 (08:35→22:53)
--- NOTE | 2022-04-21 10:39 | NUR ---
Paged Dr. Day regarding pts lower BP and feeling lightheaded and dizzy. PAGER ID: [phone] MESSAGE: [phone], Pts BP is trending lower at 98/51 map of (75). He is saying he is dizzy and lightheaded and having hot and cold flashes. He is still on the dobutamine gtt at 3mcg/kg/min. [facility] [id number].
--- NOTE | 2022-04-21 13:35 | NUR ---
Paged Dr. Day regarding the patient wanting to go home on a dobutamine drip. PAGER ID: [phone] MESSAGE: [phone], Fransisco Martinez. Pt wants to go home on a dobutamine drip. Ese [facility] [id number].
[2022-04-21 15:13] LABS: ALANINE AMINOTRANSFERASE 41 U/L (12-78); ALBUMIN 3.3 G/DL (3.4-5.0); ALBUMIN/GLOBULIN RATIO 1.1 (1.1-1.5); ALKALINE PHOSPHATASE 85 IU/L (46-116); ANION GAP 8 (8-16); ASPARTATE AMINO TRANSFERASE 29 U/L (10-37); BILIRUBIN,TOTAL 0.7 MG/DL (0.1-1.0); BLOOD UREA NITROGEN 110 MG/DL (7-18); BUN/CREATININE RATIO 41.4 (5.4-32.0); CALCIUM 8.4 MG/DL (8.5-10.1); CHLORIDE 104 MMOL/L (99-107); CREATININE 2.66 MG/DL (0.60-1.10); GLUCOSE 283 MG/DL (70-104); SODIUM 139 MMOL/L (135-145); TOTAL CARBON DIOXIDE 27.2 MMOL/L (24-32); TOTAL PROTEIN 6.2 G/DL (6.4-8.2); eGFR 24 ML/MIN
[2022-04-21] MEDS: HYDROcodone/acetaminophen 10/325mg tab PO PRN (17:22)
[2022-04-21] MEDS: ipratropium/albuterol 3ml nebule NEB PRN (19:21)
--- NOTE | 2022-04-21 21:20 | NUR ---
Received report from ANANDA Klein
--- NOTE | 2022-04-21 22:05 | NUR ---
Report given to ANANDA Carreon to assume care. Vitals stable, no signs of distress.
[2022-04-21] MEDS: insulin glargine (Lantus) pen - multi-dose SQ SCH (22:56)
--- NOTE | 2022-04-22 02:37 | NUR ---
patient did not want vitals taken
[2022-04-22] MEDS: albuterol 2.5 MG/3 ML nebule NEB SCH ×3 (03:00→10:57)
[2022-04-22 06:00] VITALS: BP 112/66
--- NOTE | 2022-04-22 06:16 | NUR ---
Problems reprioritized. Patient report given, questions answered & plan of care reviewed with ANANDA Mulligan.
[2022-04-22 06:50] LABS: ALANINE AMINOTRANSFERASE 40 U/L (12-78); ALBUMIN 3.5 G/DL (3.4-5.0); ALBUMIN/GLOBULIN RATIO 1.3 (1.1-1.5); ALKALINE PHOSPHATASE 82 IU/L (46-116); ANION GAP 8 (8-16); ASPARTATE AMINO TRANSFERASE 26 U/L (10-37); BILIRUBIN,TOTAL 0.7 MG/DL (0.1-1.0); BLOOD UREA NITROGEN 110 MG/DL (7-18); CALCIUM 8.7 MG/DL (8.5-10.1); CHLORIDE 105 MMOL/L (99-107); CREATININE 2.75 MG/DL (0.60-1.10); GLUCOSE 206 MG/DL (70-104); POTASSIUM 4.4 MMOL/L (3.5-5.1); SODIUM 142 MMOL/L (135-145); TOTAL CARBON DIOXIDE 28.6 MMOL/L (24-32); TOTAL PROTEIN 6.3 G/DL (6.4-8.2); eGFR 23 ML/MIN
[2022-04-22] MEDS: nystatin 15 GM powder TP SCH (08:00)
[2022-04-22] MEDS: nitroGLYCERIN 0.2mg/hour patch TD SCH (08:00)
[2022-04-22] MEDS: FLUoxetine 20mg capsule PO SCH (08:22)
[2022-04-22] MEDS: heparin, porcine 5000 units/ml vial SQ SCH ×2 (08:22)
[2022-04-22] MEDS: isosorbide mononitrate 30mg tab.SR.24H PO SCH (08:22)
[2022-04-22] MEDS: docusate sod 100mg capsule PO SCH (08:22)
[2022-04-22] MEDS: levoTHYROXINE 125mcg tablet PO SCH (08:22)
[2022-04-22] MEDS: pantoprazole 40mg Tablet.DR PO SCH (08:22)
[2022-04-22] MEDS: hydrALAZINE 25 MG tablet PO SCH ×2 (08:23→12:43)
[2022-04-22] MEDS: aspirin 81mg, enteric-coated 1 TAB TABLET.DR PO SCH (08:23)
[2022-04-22] MEDS: fluconazole 100mg tablet PO SCH (08:23)
[2022-04-22] MEDS: atorvastatin 20mg tablet PO SCH (08:23)
[2022-04-22] MEDS: carVEDilol 12.5mg tablet PO SCH (08:23)
[2022-04-22] MEDS: predniSONE 20 mg tablet PO SCH (08:24)
[2022-04-22] MEDS: phenazopyridine 100mg tablet PO SCH (08:24)
[2022-04-22] MEDS: insulin Lispro (HumaLOG) vial - multi-dose SQ SCH (08:40)
[2022-04-22] MEDS ORDERED: FURO-150 PO (11:30)
[2022-04-22] MEDS ORDERED: NYSPWD TP (11:30)
[2022-04-22] MEDS ORDERED: PRED10TA23 PO (11:30)
[2022-04-22] MEDS ORDERED: ISOS30TA84 PO (11:30)
[2022-04-22] MEDS ORDERED: HYDR-4069 PO (11:30)
[2022-04-22] MEDS ORDERED: ALBU8.5H17 INH (11:30)
[2022-04-22] MEDS ORDERED: BUDE10.22 INH (11:33)
[2022-04-22] MEDS: HYDROcodone/acetaminophen 5mg/325mg tablet PO PRN (12:42)
[2022-04-22 12:43] VITALS: BP_SYST 117
--- NOTE | 2022-04-22 14:12 | NUR ---
Patient stable for discharge per Dr. Hardy orders. All discharge instructions reviewed with patient and all questions answered. All new prescriptions collected and escripted to [facility] on [address]. All belongings collected and sent with patient. PIV discontinued, cannula intact. Tele discontinued. Wheeled to lobby via nursing staff and picked up by spouse.
--- NOTE | 2022-04-30 14:21 | NUR ---
Case Management DC follow up:Spoke with Patient's via telephone.S/P: Patient Reports: Denies:Acute/continuous chest pain, emergent SOB,resp distress,dyspnea,N/V, weakness,vertigo,syncope episodes.Verbalizes sleeps on couch with lots of pillows for head and feet.Verbalizes he wears 02 at night , and oxygen saturation is 96% at this time.Verbalizes compliance with aftercare; fluid restrictions, and daily weight;however, verbalizes he has gained four pounds, and edema on his legs have increased.Verbalizes he will call Dr.M. Lee's office after this call. and apprise of increase in weight and edema.Verbalizes understanding of s/s that warrant -/ER visit for further evaluation.Verbalizes understanding of new Rx:, why prescribed; continues/resumes current Rx as ordered.Verbalized staff were wonderful except one doctor, and one nurse telling him he will if he goes home without dobutamine gtt;medication had been discontinued while in hospital and reassurance given by the scrap drop crane operator;verbalized he felt better after talking to Miner Assistant. Verbalizes [facility] nurses have been out to assist, and assess .Needs met, questions/concerns addressed at DC.No further questions/concerns regarding recent hospital stay and/or DC status at this time. Verbalized follow up appointments have been scheduled.
== END 2022-04-22 13:44 | disposition home health service (06) | DRG 189 ==
LOC: ER 20:54 → ED HOLD 04-15 01:41 → PCU 3S 04-16 22:31
PROVIDERS: ADMIT Family Medicine; ATTEND Internal Medicine
DX: J96.01 Acute respiratory failure with hypoxia (principal); I50.23 Acute on chronic systolic (congestive) heart failure; I13.0 Hypertensive heart and chronic kidney disease with heart failure and stage 1 through stage 4 chronic kidney disease, or unspecified chronic kidney disease; J44.1 Chronic obstructive pulmonary disease with (acute) exacerbation; N17.9 Acute kidney failure, unspecified; N18.4 Chronic kidney disease, stage 4 (severe); I42.0 Dilated cardiomyopathy; E03.9 Hypothyroidism, unspecified; K21.9 Gastro-esophageal reflux disease without esophagitis; N40.0 Benign prostatic hyperplasia without lower urinary tract symptoms; D64.9 Anemia, unspecified; D69.6 Thrombocytopenia, unspecified; E11.22 Type 2 diabetes mellitus with diabetic chronic kidney disease; E11.65 Type 2 diabetes mellitus with hyperglycemia; E66.01 Morbid (severe) obesity due to excess calories; B35.6 Tinea cruris; R14.0 Abdominal distension (gaseous); E78.00 Pure hypercholesterolemia, unspecified; I95.9 Hypotension, unspecified; E78.5 Hyperlipidemia, unspecified; F17.210 Nicotine dependence, cigarettes, uncomplicated; G89.4 Chronic pain syndrome; I27.29 Other secondary pulmonary hypertension; Z79.899 Other long term (current) drug therapy; Z86.73 Personal history of transient ischemic attack (TIA), and cerebral infarction without residual deficits; Z68.38 Body mass index [BMI] 38.0-38.9, adult; Z88.0 Allergy status to penicillin; Z80.59 Family history of malignant neoplasm of other urinary tract organ; Z84.89 Family history of other specified conditions; Z79.82 Long term (current) use of aspirin
CPT/HCPCS: 36415; 71045; 80053; 80061; 81001; 82550; 82948; 83690; 83735; 83880; 84100; 84484; 85025; 85379; 85610; 85730; 87081; 87088; 92508; 92616; 93306; 94640; 94760; 97116; 97161; 97530; 97535; 99285; G0378; J1250; J1644; J1815; J1940; J2270; J2405; J2930; J7512; Q0163

== ENCOUNTER 2022-05-28 00:13 | Inpatient (IN) | payer MEDICARE ==
[~2022-05-28] VITALS: Ht 170.2 cm; Wt 113.1 kg
[~2022-05-28 00:13] MED LIST changes: +ALBU8.5H17 INH; -BUDE0.5A11 IH; +BUDE10.22 INH; -CHOL400T57 PO; -DOCU100C40 PO; -FERR325T28 PO; -FLO0.4C PO; +HYDR-4069 PO; +ISOS30TA84 PO; -NICO-631 TD; -NITR0.4T51 SL; -TRAZ-251 PO
[2022-05-28 01:45] LABS: BASOPHILS # (AUTO) 0.1 X10'3 (0-0.2); BASOPHILS % (AUTO) 0.8 % (0-1); EOSINOPHILS # (AUTO) 0.2 X10'3 (0-0.9); EOSINOPHILS % (AUTO) 1.8 % (0-6); HEMATOCRIT 27.6 % (42.0-52.0); HEMOGLOBIN 9.2 g/dl (14.0-17.9); LYMPHOCYTES # (AUTO) 2.8 X10'3 (1.1-4.8); LYMPHOCYTES % (AUTO) 31.7 % (21-51); MEAN CORPUSCULAR HEMOGLOBIN 29.2 PG (27.0-31.0); MEAN CORPUSCULAR HGB CONC 33.3 g/dL (33.0-36.5); MEAN CORPUSCULAR VOLUME 87.6 FL (78-98); MEAN PLATELET VOLUME 8.5 FL (7.4-10.4); MONOCYTES # (AUTO) 0.7 X10'3 (0-0.9); MONOCYTES % (AUTO) 8.2 % (2-12); NEUTROPHILS # (AUTO) 5.2 X10'3 (1.8-7.7); NEUTROPHILS % (AUTO) 57.5 % (42-75); PLATELET COUNT 187 X10'3 (140-440); RED BLOOD COUNT 3.15 X10'6 (4.70-6.10); RED CELL DISTRIBUTION WIDTH 15.1 % (11.5-14.5)
[2022-05-28 02:02] LABS: ALANINE AMINOTRANSFERASE 26 U/L (12-78); ALBUMIN 3.3 G/DL (3.4-5.0); ALKALINE PHOSPHATASE 138 IU/L (46-116); ANION GAP 8 (8-16); ASPARTATE AMINO TRANSFERASE 18 U/L (10-37); BILIRUBIN,TOTAL 0.6 MG/DL (0.1-1.0); BLOOD UREA NITROGEN 51 MG/DL (7-18); BUN/CREATININE RATIO 21.5 (5.4-32.0); CALCIUM 8.8 MG/DL (8.5-10.1); CHLORIDE 97 MMOL/L (99-107); CREATININE 2.37 MG/DL (0.60-1.10); GLUCOSE 164 MG/DL (70-104); POTASSIUM 4.6 MMOL/L (3.5-5.1); SODIUM 132 MMOL/L (135-145); TOTAL CARBON DIOXIDE 27.5 MMOL/L (24-32); TOTAL PROTEIN 6.7 G/DL (6.4-8.2); eGFR 27 ML/MIN
[2022-05-28] MEDS ORDERED: carvedilol 6.25mg tablet PO ONE (03:10)
[2022-05-28] MEDS ORDERED: furosemide 10 MG/1 ML 10ml inj IV ONE (03:10)
[2022-05-28] MEDS ORDERED: CARV25TA56 PO (04:59)
[2022-05-28] MEDS ORDERED: ALBU2.5V10 (04:59)
[2022-05-28] MEDS ORDERED: acetaminophen 325mg tablet PO PRN ×2 (05:10)
[2022-05-28] MEDS ORDERED: ondansetron 4mg rapidly disintigrating tab PO PRN (05:10)
[2022-05-28] MEDS ORDERED: bisacodyl 10mg suppository rectal RC PRN (05:10)
[2022-05-28] MEDS ORDERED: diphenhydrAMINE 50 mg/ml inj IV PRN (05:10)
[2022-05-28] MEDS ORDERED: HYDROcodone/acetaminophen 5mg/325mg tablet PO PRN ×2 (05:10→12:45)
[2022-05-28] MEDS ORDERED: ondansetron/PF 4mg/2ml inj IV PRN (05:10)
[2022-05-28] MEDS ORDERED: diphenhydrAMINE 25mg capsule PO PRN (05:10)
[2022-05-28] MEDS ORDERED: morphine 2 MG/ML inj. syringe IV PRN ×2 (05:10)
[2022-05-28] MEDS ORDERED: magnesium hydroxide 30ml (MOM) UD suspension PO PRN (05:10)
[2022-05-28] MEDS ORDERED: mag hydrox/Alum hydrox/simeth 30ml oral suspension PO PRN (05:10)
[2022-05-28] MEDS ORDERED: HYDROmorphone inj. 0.5 MG/0.5 ML DISP.SYRIN IV PRN (05:10)
[2022-05-28] MEDS ORDERED: HYDROcodone/acetaminophen 10/325mg tab PO PRN (05:10)
[2022-05-28] MEDS ORDERED: DEXTROSE 15 GM of carb/4 tabs (each vial/BOTTLE has 4 tablets) PO PRN ×2 (05:15)
[2022-05-28] MEDS ORDERED: dextrose 50%-water 50ml dispensing syringe IV PRN ×2 (05:15)
[2022-05-28] MEDS ORDERED: glucagon, human recombinant 1mg kit SUBCUT PRN (05:15)
[2022-05-28] MEDS ORDERED: MESSAGE TO PHARMACY PO ONE (05:15)
[2022-05-28] MEDS ORDERED: TRAZ-251 PO (05:20)
[2022-05-28] MEDS ORDERED: METO5TAB7 PO (05:20)
[2022-05-28] MEDS ORDERED: FLO0.4C PO (05:20)
[2022-05-28] MEDS ORDERED: HYDR-3965 PO (05:20)
[2022-05-28] MEDS ORDERED: FURO40TA4 PO (05:20)
[2022-05-28] MEDS ORDERED: ISOS30TA9 PO (05:20)
[2022-05-28] MEDS ORDERED: HYDR-4069 PO (05:20)
[2022-05-28] MEDS ORDERED: CHOL20003 PO (05:20)
[2022-05-28 05:43] LABS: MAGNESIUM 1.8 MG/DL (1.5-2.4)
[2022-05-28 05:49] LABS: APTT 29 SECONDS (22-32)
[2022-05-28 06:21] LABS: HEMOGLOBIN A1C 7.6 % (4.5-6.2)
[2022-05-28] MEDS: heparin, porcine 5000 units/ml vial SQ SCH ×2 (07:48→16:00)
[2022-05-28] MEDS: furosemide 20 MG/2 ML vial IV SCH ×2 (07:50→21:33)
[2022-05-28] MEDS: docusate sod 100mg capsule PO SCH ×2 (07:56→21:44)
--- NOTE | 2022-05-28 11:41 | NUR ---
RELIEVING RN FOR BREAK, PT IS RESTING QUIETLY ON BED, EMPTIED URINAL OF 1000ML OF CLEAR YELLOW URINE, GAVE PT ICE CHIPS
[2022-05-28] MEDS: insulin Lispro (HumaLOG) vial - multi-dose SQ SCH (13:06)
[2022-05-28] MEDS: albuterol 2.5 MG/3 ML nebule NEB SCH ×2 (14:05→20:49)
[2022-05-28] MEDS ORDERED: ISOS30TA84 PO (14:54)
[2022-05-28] MEDS ORDERED: MULT-1085 PO (14:58)
[2022-05-28] MEDS ORDERED: DOCU-148 PO (14:59)
[2022-05-28] MEDS ORDERED: FERR-116 PO (15:02)
[2022-05-28] MEDS ORDERED: ALBU8.5H17 IH (15:04)
[2022-05-28] MEDS: hydrALAZINE 25 MG tablet PO SCH (16:00)
[2022-05-28] MEDS ORDERED: temazepam 15mg capsule PO PRN (21:00)
[2022-05-28] MEDS: insulin glargine (Lantus) pen - multi-dose SQ SCH ×2 (21:00→21:42)
[2022-05-28] MEDS: carVEDilol 12.5mg tablet PO SCH (21:34)
[2022-05-28] MEDS: traZODone 50mg tablet PO SCH (21:34)
[2022-05-28 22:13] VITALS: BP 114/61
[2022-05-29] VITALS (7 sets, daily range): BP systolic 90–132; BP diastolic 45–90
[2022-05-29] MEDS: hydrALAZINE 25 MG tablet PO SCH ×3 (00:18→16:56)
[2022-05-29] MEDS: heparin, porcine 5000 units/ml vial SQ SCH ×3 (00:19→16:58)
[2022-05-29 07:15] LABS: BASOPHILS # (AUTO) 0.1 X10'3 (0-0.2); BASOPHILS % (AUTO) 0.8 % (0-1); EOSINOPHILS # (AUTO) 0.2 X10'3 (0-0.9); EOSINOPHILS % (AUTO) 1.9 % (0-6); HEMATOCRIT 27.7 % (42.0-52.0); HEMOGLOBIN 9.3 g/dl (14.0-17.9); LYMPHOCYTES # (AUTO) 3.3 X10'3 (1.1-4.8); LYMPHOCYTES % (AUTO) 39.9 % (21-51); MEAN CORPUSCULAR HGB CONC 33.4 g/dL (33.0-36.5); MEAN PLATELET VOLUME 8.5 FL (7.4-10.4); MONOCYTES # (AUTO) 0.7 X10'3 (0-0.9); MONOCYTES % (AUTO) 8.6 % (2-12); NEUTROPHILS # (AUTO) 4.1 X10'3 (1.8-7.7); NEUTROPHILS % (AUTO) 48.8 % (42-75); PLATELET COUNT 204 X10'3 (140-440); RED BLOOD COUNT 3.19 X10'6 (4.70-6.10); RED CELL DISTRIBUTION WIDTH 15.4 % (11.5-14.5); WHITE BLOOD COUNT 8.3 X10'3 (4.5-11.0)
[2022-05-29 07:27] LABS: ALANINE AMINOTRANSFERASE 26 U/L (12-78); ALBUMIN 3.3 G/DL (3.4-5.0); ALKALINE PHOSPHATASE 127 IU/L (46-116); ANION GAP 9 (8-16); ASPARTATE AMINO TRANSFERASE 22 U/L (10-37); BILIRUBIN,TOTAL 0.7 MG/DL (0.1-1.0); BLOOD UREA NITROGEN 58 MG/DL (7-18); BUN/CREATININE RATIO 23.4 (5.4-32.0); CHLORIDE 97 MMOL/L (99-107); CREATININE 2.48 MG/DL (0.60-1.10); GLUCOSE 92 MG/DL (70-104); POTASSIUM 4.1 MMOL/L (3.5-5.1); SODIUM 137 MMOL/L (135-145); TOTAL CARBON DIOXIDE 31.5 MMOL/L (24-32); TOTAL PROTEIN 6.6 G/DL (6.4-8.2); eGFR 26 ML/MIN
[2022-05-29] MEDS: [UNRECOGNIZED DRUG - OTHER] SQ SCH (08:00)
[2022-05-29] MEDS ORDERED: metolazone 2.5mg tablet PO PRN (08:00)
[2022-05-29] MEDS: LIRAGLUTIDE SQ SCH (08:00)
[2022-05-29] MEDS: albuterol 2.5 MG/3 ML nebule NEB SCH ×4 (08:19→20:28)
[2022-05-29] MEDS: furosemide 20 MG/2 ML vial IV SCH ×2 (08:34→20:21)
[2022-05-29] MEDS: docusate sod 100mg capsule PO SCH ×2 (08:37→20:12)
[2022-05-29] MEDS: pantoprazole 40mg Tablet.DR PO SCH (08:37)
[2022-05-29] MEDS: cholecalciferol (vitamin D3) 1,000 unit (25mcg) tablet PO SCH (08:38)
[2022-05-29] MEDS: atorvastatin 20mg tablet PO SCH (08:38)
[2022-05-29] MEDS: tamsulosin 0.4mg capsule PO SCH (08:38)
[2022-05-29] MEDS: isosorbide dinitrate 30mg tablet PO SCH (08:38)
[2022-05-29] MEDS: FLUoxetine 20mg capsule PO SCH (08:39)
[2022-05-29] MEDS: levoTHYROXINE 125mcg tablet PO SCH (08:39)
[2022-05-29] MEDS: carVEDilol 12.5mg tablet PO SCH ×2 (08:40→20:13)
[2022-05-29] MEDS: aspirin 81mg, enteric-coated 1 TAB TABLET.DR PO SCH (08:44)
[2022-05-29] MEDS: insulin Lispro (HumaLOG) vial - multi-dose SQ SCH ×3 (08:49→20:09)
--- NOTE | 2022-05-29 11:48 | NUR ---
Noted pt with T2DM, fairly well controlled with A1c 7.6%. Written DM education with RD contact information placed in patient's chart. Pt s/p BSS with ST dewey regular consistency of food and liquids and pt eating well, documented with 75% PO intake of first meal. Will continue to follow. Addendum: 05/29/22 at [address] Amended: Links added.
[2022-05-29] MEDS: metolazone 2.5mg tablet PO SCH (12:11)
--- NOTE | 2022-05-29 19:06 | NUR ---
Patient report given to Lauri Mcgee, pt sitting up in chair, ate dinner, no distress.
[2022-05-29] MEDS: traZODone 50mg tablet PO SCH (20:12)
[2022-05-29] MEDS: insulin glargine (Lantus) pen - multi-dose SQ SCH ×2 (21:00→22:18)
[2022-05-30] MEDS: heparin, porcine 5000 units/ml vial SQ SCH ×5 (00:27→23:58)
[2022-05-30 02:00] VITALS: BP_SYST 105; BP_SYST 122; BP_DIAS 55; BP_DIAS 67
--- NOTE | 2022-05-30 06:23 | NUR ---
Problems reprioritized. Patient report given, questions answered & plan of care reviewed with ANANDA Pena.
[2022-05-30 07:01] VITALS: BP 105/52
[2022-05-30 07:29] LABS: BASOPHILS % (AUTO) 0.6 % (0-1); EOSINOPHILS # (AUTO) 0.4 X10'3 (0-0.9); HEMATOCRIT 24.7 % (42.0-52.0); HEMOGLOBIN 8.2 g/dl (14.0-17.9); LYMPHOCYTES # (AUTO) 3.6 X10'3 (1.1-4.8); LYMPHOCYTES % (AUTO) 46.7 % (21-51); MEAN CORPUSCULAR HEMOGLOBIN 28.9 PG (27.0-31.0); MEAN CORPUSCULAR HGB CONC 33.1 g/dL (33.0-36.5); MEAN CORPUSCULAR VOLUME 87.2 FL (78-98); MEAN PLATELET VOLUME 8.4 FL (7.4-10.4); MONOCYTES # (AUTO) 0.9 X10'3 (0-0.9); MONOCYTES % (AUTO) 11.5 % (2-12); NEUTROPHILS # (AUTO) 2.8 X10'3 (1.8-7.7); NEUTROPHILS % (AUTO) 36.2 % (42-75); PLATELET COUNT 165 X10'3 (140-440); RED BLOOD COUNT 2.83 X10'6 (4.70-6.10); RED CELL DISTRIBUTION WIDTH 15.3 % (11.5-14.5); WHITE BLOOD COUNT 7.8 X10'3 (4.5-11.0)
[2022-05-30 07:30] LABS: ALANINE AMINOTRANSFERASE 24 U/L (12-78); ALKALINE PHOSPHATASE 109 IU/L (46-116); ANION GAP 10 (8-16); ASPARTATE AMINO TRANSFERASE 24 U/L (10-37); BILIRUBIN,TOTAL 0.5 MG/DL (0.1-1.0); BLOOD UREA NITROGEN 69 MG/DL (7-18); BUN/CREATININE RATIO 24.6 (5.4-32.0); CALCIUM 8.5 MG/DL (8.5-10.1); CHLORIDE 98 MMOL/L (99-107); CREATININE 2.81 MG/DL (0.60-1.10); GLUCOSE 69 MG/DL (70-104); POTASSIUM 3.8 MMOL/L (3.5-5.1); SODIUM 138 MMOL/L (135-145); TOTAL CARBON DIOXIDE 30.4 MMOL/L (24-32); eGFR 22 ML/MIN
[2022-05-30] MEDS: albuterol 2.5 MG/3 ML nebule NEB SCH ×4 (07:37→21:03)
[2022-05-30] MEDS: LIRAGLUTIDE SQ SCH (08:00)
[2022-05-30] MEDS: [UNRECOGNIZED DRUG - OTHER] SQ SCH (08:00)
[2022-05-30] MEDS: aspirin 81mg, enteric-coated 1 TAB TABLET.DR PO SCH (08:20)
[2022-05-30] MEDS: isosorbide dinitrate 30mg tablet PO SCH (08:20)
[2022-05-30] MEDS: FLUoxetine 20mg capsule PO SCH (08:20)
[2022-05-30] MEDS: levoTHYROXINE 125mcg tablet PO SCH (08:21)
[2022-05-30] MEDS: docusate sod 100mg capsule PO SCH ×2 (08:21→21:12)
[2022-05-30] MEDS: hydrALAZINE 25 MG tablet PO SCH ×4 (08:21→23:55)
[2022-05-30] MEDS: carVEDilol 12.5mg tablet PO SCH ×2 (08:22→20:00)
[2022-05-30] MEDS: cholecalciferol (vitamin D3) 1,000 unit (25mcg) tablet PO SCH (08:23)
[2022-05-30] MEDS: metolazone 2.5mg tablet PO SCH (08:24)
[2022-05-30] MEDS: furosemide 20 MG/2 ML vial IV SCH ×2 (08:25→21:12)
[2022-05-30] MEDS: atorvastatin 20mg tablet PO SCH (08:33)
[2022-05-30] MEDS: pantoprazole 40mg Tablet.DR PO SCH (08:33)
[2022-05-30] MEDS: tamsulosin 0.4mg capsule PO SCH (08:33)
[2022-05-30 11:11] VITALS: BP 108/54
[2022-05-30 11:46] LABS: ANION GAP 7 (8-16); BLOOD UREA NITROGEN 72 MG/DL (7-18); BUN/CREATININE RATIO 25.5 (5.4-32.0); CALCIUM 8.6 MG/DL (8.5-10.1); CHLORIDE 97 MMOL/L (99-107); CREATININE 2.82 MG/DL (0.60-1.10); GLUCOSE 120 MG/DL (70-104); POTASSIUM 3.6 MMOL/L (3.5-5.1); SODIUM 137 MMOL/L (135-145); TOTAL CARBON DIOXIDE 32.8 MMOL/L (24-32); eGFR 22 ML/MIN
[2022-05-30 15:00] VITALS: BP 106/54
[2022-05-30 17:59] LABS: ALBUMIN 3.1 G/DL (3.4-5.0); ANION GAP 9 (8-16); BLOOD UREA NITROGEN 75 MG/DL (7-18); BUN/CREATININE RATIO 25.7 (5.4-32.0); CALCIUM 8.7 MG/DL (8.5-10.1); CHLORIDE 96 MMOL/L (99-107); CREATININE 2.92 MG/DL (0.60-1.10); GLUCOSE 180 MG/DL (70-104); POTASSIUM 3.7 MMOL/L (3.5-5.1); SODIUM 136 MMOL/L (135-145); TOTAL CARBON DIOXIDE 30.7 MMOL/L (24-32); eGFR 21 ML/MIN
[2022-05-30 18:30] VITALS: BP 97/54
--- NOTE | 2022-05-30 18:47 | NUR ---
Report given to Portillo MALAVE, Pt resting comfortably, no distress, eating dinner.
[2022-05-30] MEDS: insulin glargine (Lantus) pen - multi-dose SQ SCH ×2 (21:00→21:29)
[2022-05-30] MEDS: traZODone 50mg tablet PO SCH (21:12)
[2022-05-30 22:00] VITALS: BP 105/55
--- NOTE | 2022-05-31 06:37 | NUR ---
Problems reprioritized. Patient report given, questions answered & plan of care reviewed with CONNOR. Addendum: 05/31/22 at 0637 by Hiren Valentin RN Amended: Links added.
--- NOTE | 2022-05-31 06:41 | NUR ---
Patient in room PCU 3016. I have received report from jesus alberto Mcgee and had the opportunity to ask questions and assume patient care.
[2022-05-31] MEDS ORDERED: albuterol 2.5 MG/3 ML nebule NEB SCH (07:00)
[2022-05-31 07:13] LABS: BASOPHILS # (AUTO) 0.1 X10'3 (0-0.2); BASOPHILS % (AUTO) 0.6 % (0-1); EOSINOPHILS # (AUTO) 0.4 X10'3 (0-0.9); EOSINOPHILS % (AUTO) 4.9 % (0-6); HEMATOCRIT 25.7 % (42.0-52.0); HEMOGLOBIN 8.6 g/dl (14.0-17.9); LYMPHOCYTES # (AUTO) 3.6 X10'3 (1.1-4.8); LYMPHOCYTES % (AUTO) 43.9 % (21-51); MEAN CORPUSCULAR HEMOGLOBIN 28.6 PG (27.0-31.0); MEAN CORPUSCULAR HGB CONC 33.4 g/dL (33.0-36.5); MEAN CORPUSCULAR VOLUME 85.7 FL (78-98); MEAN PLATELET VOLUME 8.8 FL (7.4-10.4); MONOCYTES # (AUTO) 0.8 X10'3 (0-0.9); MONOCYTES % (AUTO) 10.1 % (2-12); NEUTROPHILS # (AUTO) 3.3 X10'3 (1.8-7.7); NEUTROPHILS % (AUTO) 40.5 % (42-75); PLATELET COUNT 181 X10'3 (140-440); RED CELL DISTRIBUTION WIDTH 15.2 % (11.5-14.5); WHITE BLOOD COUNT 8.2 X10'3 (4.5-11.0)
[2022-05-31 07:24] VITALS: BP 111/63
[2022-05-31 07:34] LABS: ALANINE AMINOTRANSFERASE 27 U/L (12-78); ALBUMIN 3.4 G/DL (3.4-5.0); ALBUMIN/GLOBULIN RATIO 0.9 (1.1-1.5); ALKALINE PHOSPHATASE 121 IU/L (46-116); ANION GAP 10 (8-16); ASPARTATE AMINO TRANSFERASE 23 U/L (10-37); BILIRUBIN,TOTAL 0.5 MG/DL (0.1-1.0); BLOOD UREA NITROGEN 71 MG/DL (7-18); BUN/CREATININE RATIO 26.2 (5.4-32.0); CALCIUM 8.8 MG/DL (8.5-10.1); CHLORIDE 96 MMOL/L (99-107); CREATININE 2.71 MG/DL (0.60-1.10); GLUCOSE 100 MG/DL (70-104); POTASSIUM 3.7 MMOL/L (3.5-5.1); SODIUM 139 MMOL/L (135-145); TOTAL CARBON DIOXIDE 33.2 MMOL/L (24-32); eGFR 23 ML/MIN
[2022-05-31] MEDS: LIRAGLUTIDE SQ SCH (08:00)
[2022-05-31] MEDS: [UNRECOGNIZED DRUG - OTHER] SQ SCH (08:00)
[2022-05-31] MEDS: furosemide 20 MG/2 ML vial IV SCH (08:45)
[2022-05-31] MEDS: cholecalciferol (vitamin D3) 1,000 unit (25mcg) tablet PO SCH (08:45)
[2022-05-31 08:47] VITALS: BP_SYST 111
[2022-05-31] MEDS: levoTHYROXINE 125mcg tablet PO SCH (08:47)
[2022-05-31] MEDS: metolazone 2.5mg tablet PO SCH (08:47)
[2022-05-31] MEDS: docusate sod 100mg capsule PO SCH (08:47)
[2022-05-31] MEDS: isosorbide dinitrate 30mg tablet PO SCH (08:47)
[2022-05-31] MEDS: hydrALAZINE 25 MG tablet PO SCH (08:47)
[2022-05-31] MEDS: aspirin 81mg, enteric-coated 1 TAB TABLET.DR PO SCH (08:47)
[2022-05-31] MEDS: FLUoxetine 20mg capsule PO SCH (08:47)
[2022-05-31] MEDS: carVEDilol 12.5mg tablet PO SCH (08:48)
[2022-05-31] MEDS: pantoprazole 40mg Tablet.DR PO SCH (08:48)
[2022-05-31] MEDS: tamsulosin 0.4mg capsule PO SCH (08:48)
[2022-05-31] MEDS: atorvastatin 20mg tablet PO SCH (08:48)
[2022-05-31] MEDS: heparin, porcine 5000 units/ml vial SQ SCH (08:52)
--- NOTE | 2022-05-31 14:54 | NUR ---
PATIENT APPEARS STABLE. VSS. Seen by Dr jackson is for DC. All DC instructions given to patient. patient DC home with via private car, with home O2 in stable condition. to F/U with PCP with regards meds when home.
--- NOTE | 2022-06-04 12:24 | NUR ---
Case Management DC follow up: Spoke with Patient's via telephone.S/P :Patient Reports: Denies: Acute/continuous CP, emergent SOB, resp distress; however ,complains of orthopnea, and intermittent dyspnea with activity.Verbalizes he is still weak, but denies vertigo,syncope episodes.Denies: CASTILLO, blurry vision, s/s of stroke/BE-FAST, dysphagia, dysuria,hematuria,retention, abdominal pain/distention, hematochezia, melena, unexplained bruising, bleeding, fever, chills.Verbalizes understanding of s/s that warrant a 9-11/ER visit for further evaluation.Verbalizes understanding of Rx: why prescribed; continues/resumes current Rx as ordered. Verbalizes he weighs every day; however, has not restricted his fluid intake.Reviewed rational for fluid restriction ,to count every thing that melts, such as ice cream, jell-o, along with what he is drinking daily.Encouraged Patient to check with PCP for amount of fluid restriction he is to be on.Verbalized follow up appointment with Dr. Richardson ,via tele view, 06/30/22.Verbalized he has not made appointment with .Verbalized they no longer qualify for [facility] nurse Xena will contact Patient's PCP.Verbalized nurses and staff took good care of him.Needs met, questions/concerns addressed at DC; no further questions/concerns regarding recent hospital stay and/or DC status at this time.
== END 2022-05-31 13:30 | disposition home health service (06) | DRG 291 ==
LOC: ER 00:15 → ED HOLD 05:12 → PCU 3S 22:05
PROVIDERS: ADMIT Family Medicine; ATTEND Family Medicine
DX: I13.0 Hypertensive heart and chronic kidney disease with heart failure and stage 1 through stage 4 chronic kidney disease, or unspecified chronic kidney disease (principal); I50.23 Acute on chronic systolic (congestive) heart failure; J96.21 Acute and chronic respiratory failure with hypoxia; N17.9 Acute kidney failure, unspecified; E87.1 Hypo-osmolality and hyponatremia; I27.20 Pulmonary hypertension, unspecified; J44.9 Chronic obstructive pulmonary disease, unspecified; E11.65 Type 2 diabetes mellitus with hyperglycemia; D64.9 Anemia, unspecified; E66.01 Morbid (severe) obesity due to excess calories; N40.0 Benign prostatic hyperplasia without lower urinary tract symptoms; N18.9 Chronic kidney disease, unspecified; E03.9 Hypothyroidism, unspecified; E11.22 Type 2 diabetes mellitus with diabetic chronic kidney disease; E78.00 Pure hypercholesterolemia, unspecified; G89.29 Other chronic pain; I25.10 Atherosclerotic heart disease of native coronary artery without angina pectoris; Z86.73 Personal history of transient ischemic attack (TIA), and cerebral infarction without residual deficits; Z99.81 Dependence on supplemental oxygen; Z68.39 Body mass index [BMI] 39.0-39.9, adult; Z88.0 Allergy status to penicillin; Z80.59 Family history of malignant neoplasm of other urinary tract organ; Z84.89 Family history of other specified conditions; Z79.899 Other long term (current) drug therapy; Z79.82 Long term (current) use of aspirin; Z87.891 Personal history of nicotine dependence
CPT/HCPCS: 36415; 71045; 74176; 80048; 80053; 82948; 83036; 83735; 83880; 84100; 84484; 85025; 85610; 85730; 87081; 92508; 92616; 93005; 94640; 94760; 96374; 97116; 97162; 97530; 99285; G0378; J1644; J1815; J1940

== ENCOUNTER 2023-07-05 06:19 | Inpatient (IN) | payer MEDICARE ==
[~2023-07-05] VITALS: Ht 170.2 cm; Wt 115.7 kg
[2023-07-05] VITALS (8 sets, daily range): BP systolic 111–155; BP diastolic 50–95; PULSE 91–121; RESP 18–36; TEMP 97.6–98; O2SAT 93–99
[~2023-07-05 06:19] MED LIST changes: -ALBU1.257 NEB; +ALBU2.5V10; +ALBU8.5H17 IH; -ALBU8.5H17 INH; -BUDE10.22 INH; -CARV12.529 PO; +CARV25TA56 PO; +CHOL20003 PO; +DOCU-148 PO; +FERR-116 PO; +FLO0.4C PO; +HYDR-3965 PO; +MULT-1085 PO; +NITR0.4T51 SL; -NYSPWD TP; +SACU1TAB PO; +TRAZ-256 PO
[2023-07-05] MEDS ORDERED: vancomycin/NS 1 GM ADD-VANTAGE 250 ML IV ONE (06:55)
[2023-07-05] MEDS ORDERED: furosemide 10 MG/1 ML 10ml inj IV ONE (07:00)
[2023-07-05] MEDS ORDERED: pantoprazole 40mg IV 80 MG in normal saline 100ml IV soln 100 ML IV ONE ×2 (07:00→10:35)
[2023-07-05] MEDS ORDERED: nitroGLYCERIN-Tridil 50MG/D5W 250 ML IV ONE (07:00)
[2023-07-05] MEDS ORDERED: methylPREDNISolone sod succ 125mg/2ml vial IV ONE (07:00)
[2023-07-05] MEDS ORDERED: albuterol 2.5 MG/3 ML nebule CONTNEB PRN (07:00)
[2023-07-05 07:48] LABS: ABG BASE EXCESS -5.7 mmol/L (-2.0-2.0); ABG HCO3 21.5 mmol/L (22.0-26.0); ABG PCO2 (T) 47.9 mmHg (35.0-48.0); ABG PH (T) 7.266 (7.340-7.440); ABG PO2 (T) 63.9 mmHg (75.0-100.0); ALLEN'S TEST POSITIVE; FCOHb 0.2 % (0.0-3.9); FMetHb 0.2 % (0.0-1.5); FO2Hb 88.6 % (94-97); MODE BIPAP; PATIENT TEMPERATURE 36.2; RESPIRATORY RATE 10 b/min; TOTAL HEMOGLOBIN 11.7 G/dl (14.0-17.9)
--- NOTE | 2023-07-05 07:53 | NUR ---
Pt arrived via ems on cpap +10 flow, increase wob, states getting tired, pt reports 2lpm NC at home atc, no cpap / bipap , hx of copd chf, placed on bipap abg drawn, results reported to PT tolerating bipap at this time. Addendum: 07/05/23 at 0754 by Drea Thorne RT Amended: Links added.
[2023-07-05] MEDS ORDERED: aztreonam inj. 1,000 MG in normal saline 100ml IV soln 100 ML IV SCH (08:00)
[2023-07-05 08:16] LABS: BASOPHILS # (AUTO) 0.1 X10'3 (0-0.2); BASOPHILS % (AUTO) 0.6 % (0-1); EOSINOPHILS # (AUTO) 0.7 X10'3 (0-0.9); EOSINOPHILS % (AUTO) 4.4 % (0-6); HEMATOCRIT 32.5 % (42.0-52.0); HEMOGLOBIN 10.6 g/dl (14.0-17.9); LYMPHOCYTES # (AUTO) 4.2 X10'3 (1.1-4.8); LYMPHOCYTES % (AUTO) 26.5 % (21-51); MEAN CORPUSCULAR HEMOGLOBIN 29.8 PG (27.0-31.0); MEAN CORPUSCULAR HGB CONC 32.6 g/dL (33.0-36.5); MEAN CORPUSCULAR VOLUME 91.5 FL (78-98); MEAN PLATELET VOLUME 8.6 FL (7.4-10.4); MONOCYTES # (AUTO) 0.9 X10'3 (0-0.9); MONOCYTES % (AUTO) 5.4 % (2-12); NEUTROPHILS # (AUTO) 10.1 X10'3 (1.8-7.7); NEUTROPHILS % (AUTO) 63.1 % (42-75); PLATELET COUNT 168 X10'3 (140-440); RED BLOOD COUNT 3.55 X10'6 (4.70-6.10); RED CELL DISTRIBUTION WIDTH 15.7 % (11.5-14.5)
[2023-07-05] MEDS ORDERED: sodium bicarbonate (8.4%) 1 mEq/ml syringe IV ONE (08:35)
[2023-07-05 08:59] LABS: APTT 28 SECONDS (22-32); PROTHROMBIN TIME 10.7 SECONDS (9.0-12.0)
[2023-07-05] MEDS ORDERED: aspirin 81mg tab.chew PO ONE (09:05)
[2023-07-05 09:11] LABS: ALANINE AMINOTRANSFERASE 30 U/L (12-78); ALBUMIN 3.6 G/DL (3.4-5.0); ALKALINE PHOSPHATASE 107 IU/L (46-116); ANION GAP 11 (8-16); ASPARTATE AMINO TRANSFERASE 31 U/L (10-37); BILIRUBIN,TOTAL 0.4 MG/DL (0.1-1.0); BLOOD UREA NITROGEN 46 MG/DL (7-18); BUN/CREATININE RATIO 18.3 (10.0-20.0); CALCIUM 8.8 MG/DL (8.5-10.1); CHLORIDE 103 MMOL/L (99-107); CREATININE 2.51 MG/DL (0.60-1.10); GLUCOSE 205 MG/DL (70-104); POTASSIUM 5.2 MMOL/L (3.5-5.1); SODIUM 139 MMOL/L (135-145); TOTAL CARBON DIOXIDE 25.5 MMOL/L (24-32); TOTAL PROTEIN 7.2 G/DL (6.4-8.2); eCRCL 23 ML/MIN; eGFR 25 ML/MIN
[2023-07-05 09:26] LABS: C-REACTIVE PROTEIN 0.08 MG/DL (0.0-0.5); MAGNESIUM 1.9 MG/DL (1.5-2.4); PHOSPHORUS 4.2 MG/DL (2.3-4.5); PRO BRAIN NATRIURETIC PEPTIDE 9425 PG/ML (0-450)
[2023-07-05 09:31] LABS: ABG BASE EXCESS -2.6 mmol/L (-2.0-2.0); ABG HCO3 23.1 mmol/L (22.0-26.0); ABG OXYGEN SATURATION 97.4 % (94-97); ABG PCO2 (T) 42.9 mmHg (35.0-48.0); ABG PH (T) 7.347 (7.340-7.440); ABG PO2 (T) 107.1 mmHg (75.0-100.0); ALLEN'S TEST POSITIVE; FCOHb 0.3 % (0.0-3.9); FHHb 2.6 % (0.0-5.0); FMetHb 0.2 % (0.0-1.5); FO2Hb 96.9 % (94-97); MODE BIPAP; PATIENT TEMPERATURE 36.6; RESPIRATORY RATE 10 b/min; TOTAL HEMOGLOBIN 11.8 G/dl (14.0-17.9)
[2023-07-05 09:36] LABS: DIGOXIN < 0.2 NG/ML (0.9-1.9)
[2023-07-05] MEDS ORDERED: heparin 10,000 units/1 ML INJ IV PRN ×3 (10:35→12:55)
[2023-07-05] MEDS ORDERED: heparin 25,000 UNIT/250ml bag 250 ML IV ONE (10:35)
[2023-07-05] MEDS ORDERED: aspirin 325mg tablet PO ONE (10:35)
[2023-07-05] MEDS ORDERED: heparin 10,000 units/1 ML INJ IV ONE (10:35)
[2023-07-05] MEDS ORDERED: SACU1TAB PO (11:38)
[2023-07-05] MEDS ORDERED: OMEP20CA16 PO (11:43)
[2023-07-05] MEDS ORDERED: FURO40TA4 PO (11:43)
[2023-07-05] MEDS ORDERED: HYDROcodone/acetaminophen 5mg/325mg tablet PO PRN (12:55)
[2023-07-05] MEDS ORDERED: magnesium 2GM in 50ml NS 50 ML IV PRN (12:55)
[2023-07-05] MEDS ORDERED: mag hydrox/Alum hydrox/simeth 30ml oral suspension PO PRN (12:55)
[2023-07-05] MEDS ORDERED: heparin 25,000 UNIT/250ml bag 250 ML IV PRN (12:55)
[2023-07-05] MEDS ORDERED: potassium Cl 20 mEq SR tablet PO PRN ×2 (12:55)
[2023-07-05] MEDS ORDERED: furosemide 40mg/4ml inj IV ONE (12:55)
[2023-07-05] MEDS ORDERED: magnesium 4gm in 100ml NS 100 ML IV PRN (12:55)
[2023-07-05] MEDS ORDERED: morphine 2 MG/ML inj. syringe IV PRN ×2 (12:55)
[2023-07-05] MEDS ORDERED: magnesium Cl slow-release 64mg tablet PO PRN (12:55)
[2023-07-05] MEDS ORDERED: potassium Cl 40MEQ/1/2NS 520ml 520 ML IV PRN (12:55)
[2023-07-05] MEDS ORDERED: magnesium hydroxide 30ml (MOM) UD suspension PO PRN (12:55)
[2023-07-05] MEDS ORDERED: acetaminophen 325mg tablet PO PRN ×2 (12:55)
[2023-07-05] MEDS ORDERED: HYDROcodone/acetaminophen 10/325mg tab PO PRN (12:55)
[2023-07-05] MEDS ORDERED: ondansetron/PF 4mg/2ml inj IV PRN (12:55)
[2023-07-05] MEDS ORDERED: DEXTROSE 15 GM of carb/4 tabs (each vial/BOTTLE has 4 tablets) PO PRN ×4 (16:50→17:15)
[2023-07-05] MEDS ORDERED: glucagon, human recombinant 1mg kit SUBCUT PRN ×2 (16:50→17:15)
[2023-07-05] MEDS ORDERED: dextrose 50%-water 50ml dispensing syringe IV PRN ×3 (16:50→17:15)
[2023-07-05] MEDS ORDERED: MESSAGE TO PHARMACY PO ONE ×2 (16:50→17:15)
--- NOTE | 2023-07-05 16:52 | NUR ---
Spoke with Dr. kinsey regarding medication rec needing to be addressed, need for diabetic management, and whether or not to discontinue tidril drip. Dr. kinsey gave verbal order to discontinue tidril drip, order hyper/hypoglycemic management protocol, and stated that he would address the medication rec as soon as he could. Ese THREADING MACHINE FEEDER AUTOMATIC aware of new orders.
[2023-07-05] MEDS ORDERED: nitroGLYCERIN 0.4mg SUBLingual tab SL PRN (17:15)
[2023-07-05] MEDS ORDERED: insulin Lispro (HumaLOG) vial - multi-dose SQ SCH (17:15)
--- NOTE | 2023-07-05 18:52 | NUR ---
Problems reprioritized. Patient report given, questions answered & plan of care reviewed with Ashlee RN, RN, patient stable at transfer of care.
[2023-07-05] MEDS: docusate sod 100mg capsule PO SCH (19:30)
[2023-07-05] MEDS: carVEDilol 12.5mg tablet PO SCH (19:30)
[2023-07-05] MEDS: furosemide 40mg/4ml inj IV SCH (19:31)
[2023-07-05] MEDS: insulin Lispro (HumaLOG) vial - multi-dose SQ SCH (19:34)
[2023-07-05] MEDS: sacubitril/valsartan 24mg-26mg tablet PO SCH (19:41)
[2023-07-05] MEDS: K and/or MAG REPLACEMENT MC SCH (20:00)
[2023-07-05] MEDS ORDERED: INSULIN DETEMIR 34 UNIT SQ SCH (21:00)
[2023-07-05] MEDS: traZODone 50mg tablet PO SCH (21:37)
[2023-07-05] MEDS: insulin glargine (Lantus) pen - multi-dose SQ SCH (21:41)
[2023-07-06] VITALS (12 sets, daily range): BP systolic 95–125; BP diastolic 50–54; PULSE 66–84; RESP 17–21; TEMP 97.2–98.1; O2SAT 95–99
[2023-07-06] MEDS: hydrALAZINE 25 MG tablet PO SCH ×3 (00:58→16:00)
[2023-07-06 03:50] LABS: BASOPHILS % (AUTO) 0.1 % (0-1); EOSINOPHILS % (AUTO) 0.1 % (0-6); LYMPHOCYTES # (AUTO) 2.8 X10'3 (1.1-4.8); LYMPHOCYTES % (AUTO) 23.7 % (21-51); MEAN CORPUSCULAR HEMOGLOBIN 29.2 PG (27.0-31.0); MEAN CORPUSCULAR VOLUME 91.2 FL (78-98); MEAN PLATELET VOLUME 8.7 FL (7.4-10.4); MONOCYTES # (AUTO) 0.8 X10'3 (0-0.9); MONOCYTES % (AUTO) 6.7 % (2-12); NEUTROPHILS # (AUTO) 8.3 X10'3 (1.8-7.7); NEUTROPHILS % (AUTO) 69.4 % (42-75); PLATELET COUNT 149 X10'3 (140-440); RED BLOOD COUNT 3.07 X10'6 (4.70-6.10); RED CELL DISTRIBUTION WIDTH 15.5 % (11.5-14.5); WHITE BLOOD COUNT 11.9 X10'3 (4.5-11.0)
[2023-07-06 04:04] LABS: ALANINE AMINOTRANSFERASE 26 U/L (12-78); ALBUMIN 2.9 G/DL (3.4-5.0); ALBUMIN/GLOBULIN RATIO 0.9 (1.1-1.5); ALKALINE PHOSPHATASE 81 IU/L (46-116); ANION GAP 7 (8-16); ASPARTATE AMINO TRANSFERASE 36 U/L (10-37); BILIRUBIN,TOTAL 0.4 MG/DL (0.1-1.0); BLOOD UREA NITROGEN 49 MG/DL (7-18); BUN/CREATININE RATIO 18.9 (10.0-20.0); CALCIUM 8.3 MG/DL (8.5-10.1); CHLORIDE 105 MMOL/L (99-107); CREATININE 2.59 MG/DL (0.60-1.10); GLUCOSE 180 MG/DL (70-104); SODIUM 139 MMOL/L (135-145); THYROID STIMULATING HORMONE 1.19 ulU/ml (0.34-4.50); TOTAL CARBON DIOXIDE 26.9 MMOL/L (24-32); eCRCL 23 ML/MIN; eGFR 24 ML/MIN
[2023-07-06 04:06] LABS: HEMOGLOBIN A1C 6.6 % (4.5-6.2)
--- NOTE | 2023-07-06 06:16 | NUR ---
Problems reprioritized. Patient report given, questions answered & plan of care reviewed with Ese
[2023-07-06] MEDS: K and/or MAG REPLACEMENT MC SCH ×2 (08:00→20:00)
[2023-07-06] MEDS: pantoprazole 40mg Tablet.DR PO SCH (08:13)
[2023-07-06] MEDS: aspirin 81mg, enteric-coated 1 TAB TABLET.DR PO SCH (08:16)
[2023-07-06] MEDS: atorvastatin 20mg tablet PO SCH (08:18)
[2023-07-06] MEDS: docusate sod 100mg capsule PO SCH ×2 (08:18→19:52)
[2023-07-06] MEDS: tamsulosin 0.4mg capsule PO SCH (08:19)
[2023-07-06] MEDS: isosorbide mononitrate 30mg tab.SR.24H PO SCH (08:19)
[2023-07-06] MEDS: carVEDilol 12.5mg tablet PO SCH ×2 (08:19→19:51)
[2023-07-06] MEDS: FLUoxetine 20mg capsule PO SCH (08:19)
[2023-07-06] MEDS: furosemide 40mg/4ml inj IV SCH ×2 (08:19→19:52)
[2023-07-06] MEDS: levoTHYROXINE 125mcg tablet PO SCH (08:19)
[2023-07-06] MEDS: sacubitril/valsartan 24mg-26mg tablet PO SCH ×2 (08:20→19:52)
[2023-07-06] MEDS: insulin Lispro (HumaLOG) vial - multi-dose SQ SCH ×2 (09:17→19:57)
[2023-07-06] MEDS ORDERED: albuterol 2.5 MG/3 ML nebule NEB PRN (15:15)
--- NOTE | 2023-07-06 18:41 | NUR ---
Problems reprioritized. Patient report given, questions answered & plan of care reviewed with Juliane MALAVE, patient stable at transfer of care.
[2023-07-06] MEDS: albuterol 2.5 MG/3 ML nebule NEB SCH ×2 (19:49→23:48)
[2023-07-06] MEDS: traZODone 50mg tablet PO SCH (21:13)
[2023-07-06] MEDS: insulin glargine (Lantus) pen - multi-dose SQ SCH (21:22)
[2023-07-07] VITALS (17 sets, daily range): BP systolic 95–111; BP diastolic 43–70; PULSE 63–80; RESP 12–20; TEMP 97.1–98.2; O2SAT 93–99
[2023-07-07] MEDS: albuterol 2.5 MG/3 ML nebule NEB SCH ×6 (03:01→23:11)
--- NOTE | 2023-07-07 06:27 | NUR ---
Problems reprioritized. Patient report given, questions answered & plan of care reviewed with Ese MALAVE and Leila MALAVE.
--- NOTE | 2023-07-07 06:30 | NUR ---
Patient in room PCU 3014. I have received report from Josephine MALAVE and had the opportunity to ask questions and assume patient care.
[2023-07-07 07:03] LABS: BASOPHILS # (AUTO) 0.1 X10'3 (0-0.2); BASOPHILS % (AUTO) 0.5 % (0-1); EOSINOPHILS # (AUTO) 0.5 X10'3 (0-0.9); EOSINOPHILS % (AUTO) 4.2 % (0-6); HEMATOCRIT 27.1 % (42.0-52.0); HEMOGLOBIN 8.9 g/dl (14.0-17.9); LYMPHOCYTES % (AUTO) 49.8 % (21-51); MEAN CORPUSCULAR HEMOGLOBIN 30.1 PG (27.0-31.0); MEAN CORPUSCULAR HGB CONC 32.8 g/dL (33.0-36.5); MEAN CORPUSCULAR VOLUME 91.7 FL (78-98); MEAN PLATELET VOLUME 8.5 FL (7.4-10.4); MONOCYTES # (AUTO) 0.9 X10'3 (0-0.9); MONOCYTES % (AUTO) 7.4 % (2-12); NEUTROPHILS # (AUTO) 4.6 X10'3 (1.8-7.7); NEUTROPHILS % (AUTO) 38.1 % (42-75); PLATELET COUNT 130 X10'3 (140-440); RED BLOOD COUNT 2.96 X10'6 (4.70-6.10); RED CELL DISTRIBUTION WIDTH 15.4 % (11.5-14.5); WHITE BLOOD COUNT 12.2 X10'3 (4.5-11.0)
[2023-07-07 07:17] LABS: ALANINE AMINOTRANSFERASE 22 U/L (12-78); ALKALINE PHOSPHATASE 75 IU/L (46-116); ANION GAP 9 (8-16); ASPARTATE AMINO TRANSFERASE 23 U/L (10-37); BILIRUBIN,TOTAL 0.3 MG/DL (0.1-1.0); BLOOD UREA NITROGEN 64 MG/DL (7-18); BUN/CREATININE RATIO 21.7 (10.0-20.0); CALCIUM 8.4 MG/DL (8.5-10.1); CHLORIDE 104 MMOL/L (99-107); CREATININE 2.95 MG/DL (0.60-1.10); GLUCOSE 105 MG/DL (70-104); POTASSIUM 4.8 MMOL/L (3.5-5.1); SODIUM 142 MMOL/L (135-145); TOTAL CARBON DIOXIDE 28.9 MMOL/L (24-32); TOTAL PROTEIN 5.9 G/DL (6.4-8.2); eCRCL 20 ML/MIN; eGFR 21 ML/MIN
[2023-07-07 07:37] LABS: % IRON SATURATION 31 % (11-46); IRON 76 UG/DL (53-167); TOTAL IRON BINDING CAPACITY 248 UG/DL (259-388)
[2023-07-07] MEDS: K and/or MAG REPLACEMENT MC SCH ×2 (08:00→20:00)
[2023-07-07] MEDS: hydrALAZINE 25 MG tablet PO SCH ×3 (08:00→16:00)
[2023-07-07 08:34] LABS: TOTAL CELLS COUNTED 100
[2023-07-07 08:35] LABS: PLATELET ESTIMATE DECREASED
[2023-07-07 08:37] LABS: ANISOCYTOSIS 1+; POIKILOCYTOSIS 1+
[2023-07-07] MEDS: levoTHYROXINE 125mcg tablet PO SCH (09:20)
[2023-07-07] MEDS: tamsulosin 0.4mg capsule PO SCH (09:20)
[2023-07-07] MEDS: isosorbide mononitrate 30mg tab.SR.24H PO SCH (09:24)
[2023-07-07] MEDS: carVEDilol 12.5mg tablet PO SCH ×2 (09:24→19:38)
[2023-07-07] MEDS: atorvastatin 20mg tablet PO SCH (09:25)
[2023-07-07] MEDS: aspirin 81mg, enteric-coated 1 TAB TABLET.DR PO SCH (09:25)
[2023-07-07] MEDS: FLUoxetine 20mg capsule PO SCH (09:25)
[2023-07-07] MEDS: docusate sod 100mg capsule PO SCH ×2 (09:25→19:49)
[2023-07-07] MEDS: insulin Lispro (HumaLOG) vial - multi-dose SQ SCH ×3 (09:33→19:40)
[2023-07-07] MEDS: heparin, porcine 5000 units/ml vial SQ SCH ×2 (10:55→19:38)
[2023-07-07] MEDS: sacubitril/valsartan 24mg-26mg tablet PO SCH ×2 (10:56→19:38)
[2023-07-07] MEDS: furosemide 20 MG/2 ML vial IV SCH ×2 (10:56→19:35)
[2023-07-07] MEDS: pantoprazole 40mg Tablet.DR PO SCH (10:56)
--- NOTE | 2023-07-07 18:36 | NUR ---
Problems reprioritized. Patient report given, questions answered & plan of care reviewed with Macarena MALAVE, patient stable at transfer of care.
[2023-07-07] MEDS ORDERED: furosemide 40mg/4ml inj IV SCH ×2 (20:00)
[2023-07-07] MEDS: insulin glargine (Lantus) pen - multi-dose SQ SCH (21:19)
[2023-07-07] MEDS: traZODone 50mg tablet PO SCH (21:20)
[2023-07-08] VITALS (7 sets, daily range): BP systolic 97–118; BP diastolic 42–55; PULSE 61–78; RESP 12–18; TEMP 97.7–97.9; O2SAT 92–96
--- NOTE | 2023-07-08 06:31 | NUR ---
Problems reprioritized. Patient report given, questions answered & plan of care reviewed with Macarena MALAVE.
[2023-07-08] MEDS: albuterol 2.5 MG/3 ML nebule NEB SCH ×2 (07:59→11:41)
[2023-07-08] MEDS: docusate sod 100mg capsule PO SCH (08:00)
[2023-07-08 08:14] LABS: BASOPHILS # (AUTO) 0.1 X10'3 (0-0.2); BASOPHILS % (AUTO) 0.7 % (0-1); EOSINOPHILS # (AUTO) 0.8 X10'3 (0-0.9); EOSINOPHILS % (AUTO) 7.1 % (0-6); HEMATOCRIT 28.4 % (42.0-52.0); HEMOGLOBIN 9.4 g/dl (14.0-17.9); LYMPHOCYTES % (AUTO) 53.5 % (21-51); MEAN CORPUSCULAR HEMOGLOBIN 30.2 PG (27.0-31.0); MEAN CORPUSCULAR HGB CONC 33.1 g/dL (33.0-36.5); MEAN CORPUSCULAR VOLUME 91.3 FL (78-98); MEAN PLATELET VOLUME 9.1 FL (7.4-10.4); MONOCYTES # (AUTO) 0.8 X10'3 (0-0.9); MONOCYTES % (AUTO) 6.9 % (2-12); NEUTROPHILS # (AUTO) 3.6 X10'3 (1.8-7.7); NEUTROPHILS % (AUTO) 31.8 % (42-75); PLATELET COUNT 136 X10'3 (140-440); RED BLOOD COUNT 3.11 X10'6 (4.70-6.10); RED CELL DISTRIBUTION WIDTH 15.1 % (11.5-14.5); WHITE BLOOD COUNT 11.2 X10'3 (4.5-11.0)
[2023-07-08] MEDS: levoTHYROXINE 125mcg tablet PO SCH (08:35)
[2023-07-08] MEDS: isosorbide mononitrate 30mg tab.SR.24H PO SCH (08:35)
[2023-07-08] MEDS: hydrALAZINE 25 MG tablet PO SCH ×2 (08:36)
[2023-07-08] MEDS: pantoprazole 40mg Tablet.DR PO SCH (08:36)
[2023-07-08] MEDS: aspirin 81mg, enteric-coated 1 TAB TABLET.DR PO SCH (08:36)
[2023-07-08] MEDS: sacubitril/valsartan 24mg-26mg tablet PO SCH (08:37)
[2023-07-08] MEDS: FLUoxetine 20mg capsule PO SCH (08:37)
[2023-07-08] MEDS: tamsulosin 0.4mg capsule PO SCH (08:37)
[2023-07-08] MEDS: carVEDilol 12.5mg tablet PO SCH (08:37)
[2023-07-08 08:39] LABS: ALANINE AMINOTRANSFERASE 25 U/L (12-78); ALBUMIN 3.2 G/DL (3.4-5.0); ALKALINE PHOSPHATASE 78 IU/L (46-116); ANION GAP 9 (8-16); ASPARTATE AMINO TRANSFERASE 21 U/L (10-37); BILIRUBIN,TOTAL 0.3 MG/DL (0.1-1.0); BLOOD UREA NITROGEN 69 MG/DL (7-18); BUN/CREATININE RATIO 23.4 (10.0-20.0); CALCIUM 8.5 MG/DL (8.5-10.1); CHLORIDE 105 MMOL/L (99-107); CREATININE 2.95 MG/DL (0.60-1.10); GLUCOSE 113 MG/DL (70-104); POTASSIUM 4.6 MMOL/L (3.5-5.1); SODIUM 142 MMOL/L (135-145); TOTAL PROTEIN 6.3 G/DL (6.4-8.2); eCRCL 20 ML/MIN; eGFR 21 ML/MIN
[2023-07-08] MEDS: heparin, porcine 5000 units/ml vial SQ SCH (08:43)
[2023-07-08] MEDS: furosemide 20 MG/2 ML vial IV SCH (08:43)
[2023-07-08] MEDS: K and/or MAG REPLACEMENT MC SCH (08:44)
[2023-07-08] MEDS: atorvastatin 20mg tablet PO SCH (08:45)
[2023-07-08 09:50] LABS: ANISOCYTOSIS FEW; PLATELET ESTIMATE DECREASED; POIKILOCYTOSIS FEW; TOTAL CELLS COUNTED 100
== END 2023-07-08 15:11 | disposition home health service (06) | DRG 280 ==
LOC: ER 06:19 → ED HOLD 12:55 → PCU 3S 17:10
PROVIDERS: ADMIT Family Medicine; ATTEND Family Medicine
DX: I13.0 Hypertensive heart and chronic kidney disease with heart failure and stage 1 through stage 4 chronic kidney disease, or unspecified chronic kidney disease (principal); I50.23 Acute on chronic systolic (congestive) heart failure; I21.A1 Myocardial infarction type 2; J96.21 Acute and chronic respiratory failure with hypoxia; J44.1 Chronic obstructive pulmonary disease with (acute) exacerbation; E87.20 Acidosis, unspecified; I42.9 Cardiomyopathy, unspecified; I25.10 Atherosclerotic heart disease of native coronary artery without angina pectoris; N40.0 Benign prostatic hyperplasia without lower urinary tract symptoms; D72.829 Elevated white blood cell count, unspecified; E03.9 Hypothyroidism, unspecified; E11.22 Type 2 diabetes mellitus with diabetic chronic kidney disease; E11.65 Type 2 diabetes mellitus with hyperglycemia; E66.9 Obesity, unspecified; D64.9 Anemia, unspecified; G89.29 Other chronic pain; E78.00 Pure hypercholesterolemia, unspecified; E87.5 Hyperkalemia; F17.210 Nicotine dependence, cigarettes, uncomplicated; N18.9 Chronic kidney disease, unspecified; Z68.39 Body mass index [BMI] 39.0-39.9, adult; I25.2 Old myocardial infarction; Z79.4 Long term (current) use of insulin; Z80.9 Family history of malignant neoplasm, unspecified; Z79.899 Other long term (current) drug therapy; Z82.0 Family history of epilepsy and other diseases of the nervous system; Z86.73 Personal history of transient ischemic attack (TIA), and cerebral infarction without residual deficits; Z88.0 Allergy status to penicillin; Z79.82 Long term (current) use of aspirin; Z91.148 Patient's other noncompliance with medication regimen for other reason
CPT/HCPCS: 36415; 36600; 71045; 80053; 80162; 82803; 82948; 83036; 83540; 83550; 83605; 83735; 83880; 84100; 84145; 84443; 84484; 85007; 85018; 85025; 85610; 85651; 85730; 86140; 87040; 93005; 94640; 94660; 94760; 97116; 97161; 97530; 99285; A4615; A7015; C9113; G0378; J1644; J1815; J1940; J2270; J2930; J3370; J3490

== ENCOUNTER 2023-07-23 02:46 | Inpatient (IN) | payer MEDICARE ==
[2023-07-23] VITALS (7 sets, daily range): BP systolic 112; BP diastolic 51; PULSE 68–104; RESP 16–31; TEMP 97.6; O2SAT 96–99
[~2023-07-23] VITALS: Ht 170.2 cm; Wt 118.2 kg
[~2023-07-23 02:46] MED LIST changes: -ALBU2.5V10; +FURO40TA4 PO; +OMEP20CA16 PO; -OMEP40CA21 PO
[2023-07-23] MEDS ORDERED: furosemide 10 MG/1 ML 10ml inj IV ONE (02:50)
[2023-07-23] MEDS ORDERED: LORazepam 2 mg/ml vial ONE (03:01)
[2023-07-23 03:28] LABS: BASOPHILS # (AUTO) 0.1 X10'3 (0-0.2); BASOPHILS % (AUTO) 0.7 % (0-1); EOSINOPHILS # (AUTO) 0.9 X10'3 (0-0.9); EOSINOPHILS % (AUTO) 7.6 % (0-6); HEMATOCRIT 35.5 % (42.0-52.0); HEMOGLOBIN 11.7 g/dl (14.0-17.9); LYMPHOCYTES # (AUTO) 5.6 X10'3 (1.1-4.8); LYMPHOCYTES % (AUTO) 46.4 % (21-51); MEAN CORPUSCULAR HEMOGLOBIN 30.5 PG (27.0-31.0); MEAN CORPUSCULAR HGB CONC 32.9 g/dL (33.0-36.5); MEAN CORPUSCULAR VOLUME 92.5 FL (78-98); MEAN PLATELET VOLUME 9.2 FL (7.4-10.4); MONOCYTES # (AUTO) 0.8 X10'3 (0-0.9); MONOCYTES % (AUTO) 6.7 % (2-12); NEUTROPHILS # (AUTO) 4.7 X10'3 (1.8-7.7); NEUTROPHILS % (AUTO) 38.6 % (42-75); PLATELET COUNT 154 X10'3 (140-440); RED BLOOD COUNT 3.83 X10'6 (4.70-6.10); RED CELL DISTRIBUTION WIDTH 15.7 % (11.5-14.5); WHITE BLOOD COUNT 12.1 X10'3 (4.5-11.0)
[2023-07-23 03:30] LABS: PROTHROMBIN TIME 10.5 SECONDS (9.0-12.0)
[2023-07-23 03:34] LABS: ALANINE AMINOTRANSFERASE 22 U/L (12-78); ALBUMIN 3.9 G/DL (3.4-5.0); ALKALINE PHOSPHATASE 109 IU/L (46-116); ANION GAP 10 (8-16); ASPARTATE AMINO TRANSFERASE 21 U/L (10-37); BILIRUBIN,TOTAL 0.4 MG/DL (0.1-1.0); BLOOD UREA NITROGEN 51 MG/DL (7-18); BUN/CREATININE RATIO 18.9 (10.0-20.0); CALCIUM 9.2 MG/DL (8.5-10.1); CHLORIDE 106 MMOL/L (99-107); GLUCOSE 98 MG/DL (70-104); POTASSIUM 5.1 MMOL/L (3.5-5.1); SODIUM 143 MMOL/L (135-145); TOTAL CARBON DIOXIDE 27.1 MMOL/L (24-32); TOTAL PROTEIN 7.8 G/DL (6.4-8.2); eCRCL 22 ML/MIN; eGFR 23 ML/MIN
[2023-07-23 03:42] LABS: PRO BRAIN NATRIURETIC PEPTIDE 8665 PG/ML (0-450)
[2023-07-23] MEDS ORDERED: dextrose 50%-water 50ml dispensing syringe IV PRN ×2 (04:25)
[2023-07-23] MEDS ORDERED: MESSAGE TO PHARMACY PO ONE (04:25)
[2023-07-23] MEDS ORDERED: mag hydrox/Alum hydrox/simeth 30ml oral suspension PO PRN (04:25)
[2023-07-23] MEDS ORDERED: magnesium hydroxide 30ml (MOM) UD suspension PO PRN (04:25)
[2023-07-23] MEDS ORDERED: glucagon, human recombinant 1mg kit SUBCUT PRN (04:25)
[2023-07-23] MEDS ORDERED: magnesium Cl slow-release 64mg tablet PO PRN (04:25)
[2023-07-23] MEDS ORDERED: magnesium 2GM in 50ml NS 50 ML IV PRN (04:25)
[2023-07-23] MEDS ORDERED: potassium Cl 20 mEq SR tablet PO PRN ×2 (04:25)
[2023-07-23] MEDS ORDERED: DEXTROSE 15 GM of carb/4 tabs (each vial/BOTTLE has 4 tablets) PO PRN ×2 (04:25)
[2023-07-23] MEDS ORDERED: acetaminophen 325mg tablet PO PRN (04:25)
[2023-07-23] MEDS ORDERED: magnesium 4gm in 100ml NS 100 ML IV PRN (04:25)
[2023-07-23] MEDS ORDERED: insulin Lispro (HumaLOG) vial - multi-dose SQ SCH (04:25)
[2023-07-23] MEDS ORDERED: ondansetron/PF 4mg/2ml inj IV PRN (04:25)
[2023-07-23] MEDS ORDERED: potassium Cl 40MEQ/1/2NS 520ml 520 ML IV PRN (04:25)
[2023-07-23] MEDS ORDERED: nitroGLYCERIN 0.4mg SUBLingual tab SL PRN (05:15)
[2023-07-23] MEDS ORDERED: HYDROcodone/acetaminophen 5mg/325mg tablet PO PRN (05:15)
[2023-07-23] MEDS ORDERED: albuterol 2.5 MG/3 ML nebule NEB PRN (05:25)
[2023-07-23] MEDS: K and/or MAG REPLACEMENT MC SCH ×2 (08:00→20:00)
[2023-07-23] MEDS: docusate sod 100mg capsule PO SCH ×5 (08:00→21:00)
[2023-07-23 08:19] LABS: MAGNESIUM 1.9 MG/DL (1.5-2.4); POTASSIUM 5.3 MMOL/L (3.5-5.1)
[2023-07-23] MEDS: furosemide 40mg/4ml inj IV SCH ×2 (09:54→20:00)
[2023-07-23] MEDS: isosorbide mononitrate 30mg tab.SR.24H PO SCH (09:54)
[2023-07-23] MEDS: tamsulosin 0.4mg capsule PO SCH (09:54)
[2023-07-23] MEDS: aspirin 81mg, enteric-coated 1 TAB TABLET.DR PO SCH (09:55)
[2023-07-23] MEDS: pantoprazole 40mg Tablet.DR PO SCH (09:55)
[2023-07-23] MEDS: cholecalciferol (vitamin D3) 1,000 unit (25mcg) tablet PO SCH (09:56)
[2023-07-23] MEDS: atorvastatin 20mg tablet PO SCH (09:56)
[2023-07-23] MEDS: FLUoxetine 20mg capsule PO SCH (09:56)
[2023-07-23] MEDS: carVEDilol 12.5mg tablet PO SCH ×2 (09:56→20:00)
[2023-07-23] MEDS: ferrous sulfate 325mg tablet PO SCH ×2 (09:57→20:00)
[2023-07-23] MEDS: multivitamins, therapeutics tablet PO SCH (09:57)
[2023-07-23] MEDS: hydrALAZINE 25 MG tablet PO SCH ×2 (11:00→16:00)
[2023-07-23] MEDS: sacubitril/valsartan 24mg-26mg tablet PO SCH ×2 (11:50→20:00)
[2023-07-23] MEDS: levoTHYROXINE 125mcg tablet PO SCH (11:50)
--- NOTE | 2023-07-23 19:30 | NUR ---
ALPRESOLINE AND COLACE ADMINISTRATION/NON ADMINISTRATION FROM PREVIOUS SHIFT.
[2023-07-23] MEDS ORDERED: INSULIN DETEMIR 34 UNIT SQ SCH (21:00)
[2023-07-23] MEDS: insulin glargine (Lantus) pen - multi-dose SQ SCH (21:00)
[2023-07-23] MEDS: traZODone 50mg tablet PO SCH (21:22)
--- NOTE | 2023-07-23 23:38 | NUR ---
Converted from Sinus Rhythm to afib hr 120's - 160's, notified MD Spencer and obtained new order for one time Lopressor 5mg IV.
[2023-07-23] MEDS ORDERED: metoprolol tartrate 1mg/ml inj IV ONE (23:40)
[2023-07-24] VITALS (12 sets, daily range): BP systolic 81–105; BP diastolic 47–62; PULSE 66–151; RESP 16–24; TEMP 97–98.7; O2SAT 95–99
[2023-07-24] MEDS ORDERED: morphine 2 MG/ML inj. syringe IV PRN (00:40)
[2023-07-24] MEDS ORDERED: normal saline 250ml IV soln 250 ML IV ONE (00:40)
[2023-07-24] MEDS ORDERED: amiodarone 150mg/dext, iso-os 100 ML IV ONE (00:40)
--- NOTE | 2023-07-24 01:30 | NUR ---
Lopressor 5mg IV push was ineffective obtained new order from Dr. Ingram for loading dose of Amio now and 250ml of NS bolus to fix Afib and lower bp in the 80's sys. Pt converted from Afib to sinus after Amio loading dose @0123, Dr. Ingram aware. Vitals stable at this time, no s/s of distress.
--- NOTE | 2023-07-24 06:24 | NUR ---
Patient in room U 3026. I have received report from Charles and had the opportunity to ask questions and assume patient care. Addendum: 07/24/23 at 0624 by Conrado Velasco RN Amended: Links added.
[2023-07-24 07:39] LABS: POTASSIUM 4.8 MMOL/L (3.5-5.1)
[2023-07-24] MEDS: furosemide 40mg/4ml inj IV SCH ×2 (08:00→20:50)
[2023-07-24] MEDS: carVEDilol 12.5mg tablet PO SCH ×2 (08:00→20:42)
[2023-07-24] MEDS: docusate sod 100mg capsule PO SCH ×5 (08:00→21:00)
[2023-07-24] MEDS: sacubitril/valsartan 24mg-26mg tablet PO SCH ×2 (08:00→20:42)
[2023-07-24] MEDS: K and/or MAG REPLACEMENT MC SCH ×2 (08:00→20:00)
[2023-07-24] MEDS: hydrALAZINE 25 MG tablet PO SCH ×3 (08:00→16:00)
[2023-07-24] MEDS: isosorbide mononitrate 30mg tab.SR.24H PO SCH (08:30)
[2023-07-24] MEDS: multivitamins, therapeutics tablet PO SCH (08:30)
[2023-07-24] MEDS: levoTHYROXINE 125mcg tablet PO SCH (08:30)
[2023-07-24] MEDS: atorvastatin 20mg tablet PO SCH (08:30)
[2023-07-24] MEDS: pantoprazole 40mg Tablet.DR PO SCH (08:31)
[2023-07-24] MEDS: aspirin 81mg, enteric-coated 1 TAB TABLET.DR PO SCH (08:31)
[2023-07-24] MEDS: cholecalciferol (vitamin D3) 1,000 unit (25mcg) tablet PO SCH (08:31)
[2023-07-24] MEDS: ferrous sulfate 325mg tablet PO SCH ×2 (08:31→20:42)
[2023-07-24] MEDS: FLUoxetine 20mg capsule PO SCH (08:31)
[2023-07-24] MEDS: tamsulosin 0.4mg capsule PO SCH (08:31)
--- NOTE | 2023-07-24 11:09 | NUR ---
Patient in room PCU 3026. I have received report from Conrado MALAVE and had the opportunity to ask questions and assume patient care.
--- NOTE | 2023-07-24 11:16 | NUR ---
Problems reprioritized. Patient report given, questions answered & plan of care reviewed with Jovanna. Addendum: 07/24/23 at 1116 by Conrado Velasco RN Amended: Links added.
[2023-07-24 13:00] LABS: THYROID STIMULATING HORMONE 1.71 ulU/ml (0.34-4.50)
--- NOTE | 2023-07-24 18:27 | NUR ---
Problems reprioritized. Patient report given, questions answered & plan of care reviewed with Dayan EXCEL ANALYST.
[2023-07-24] MEDS: traZODone 50mg tablet PO SCH (20:42)
[2023-07-24] MEDS: insulin glargine (Lantus) pen - multi-dose SQ SCH (21:00)
[2023-07-25 02:00] VITALS: BP 100/50; PULSE 70; RESP 16; TEMP 97.4; O2SAT 96
[2023-07-25 06:00] VITALS: BP 93/57; PULSE 77; RESP 19; TEMP 98.4; O2SAT 93
--- NOTE | 2023-07-25 06:26 | NUR ---
Patient in room PCU 3026. I have received report from Dayan and had the opportunity to ask questions and assume patient care.
[2023-07-25 06:47] LABS: BASOPHILS # (AUTO) 0.1 X10'3 (0-0.2); BASOPHILS % (AUTO) 0.7 % (0-1); EOSINOPHILS # (AUTO) 0.6 X10'3 (0-0.9); EOSINOPHILS % (AUTO) 5.6 % (0-6); HEMATOCRIT 26.7 % (42.0-52.0); LYMPHOCYTES # (AUTO) 4.7 X10'3 (1.1-4.8); LYMPHOCYTES % (AUTO) 47.9 % (21-51); MEAN CORPUSCULAR HEMOGLOBIN 30.8 PG (27.0-31.0); MEAN CORPUSCULAR HGB CONC 33.5 g/dL (33.0-36.5); MEAN CORPUSCULAR VOLUME 91.8 FL (78-98); MEAN PLATELET VOLUME 9.3 FL (7.4-10.4); NEUTROPHILS # (AUTO) 3.5 X10'3 (1.8-7.7); NEUTROPHILS % (AUTO) 35.8 % (42-75); PLATELET COUNT 125 X10'3 (140-440); RED BLOOD COUNT 2.91 X10'6 (4.70-6.10); RED CELL DISTRIBUTION WIDTH 14.8 % (11.5-14.5); WHITE BLOOD COUNT 9.8 X10'3 (4.5-11.0)
[2023-07-25 06:50] LABS: ALANINE AMINOTRANSFERASE 25 U/L (12-78); ALBUMIN 3.2 G/DL (3.4-5.0); ALBUMIN/GLOBULIN RATIO 1.1 (1.1-1.5); ALKALINE PHOSPHATASE 89 IU/L (46-116); ANION GAP 6 (8-16); ASPARTATE AMINO TRANSFERASE 54 U/L (10-37); BILIRUBIN,TOTAL 0.4 MG/DL (0.1-1.0); BLOOD UREA NITROGEN 62 MG/DL (7-18); BUN/CREATININE RATIO 18.6 (10.0-20.0); CALCIUM 8.9 MG/DL (8.5-10.1); CHLORIDE 104 MMOL/L (99-107); CREATININE 3.33 MG/DL (0.60-1.10); GLUCOSE 121 MG/DL (70-104); MAGNESIUM 1.8 MG/DL (1.5-2.4); POTASSIUM 4.5 MMOL/L (3.5-5.1); SODIUM 139 MMOL/L (135-145); TOTAL CARBON DIOXIDE 28.8 MMOL/L (24-32); TOTAL PROTEIN 6.2 G/DL (6.4-8.2); eCRCL 18 ML/MIN; eGFR 18 ML/MIN
[2023-07-25] MEDS: pantoprazole 40mg Tablet.DR PO SCH ×2 (07:30→09:41)
[2023-07-25 08:00] VITALS: RESP 14; O2SAT 96
[2023-07-25] MEDS: K and/or MAG REPLACEMENT MC SCH (08:00)
[2023-07-25] MEDS: carVEDilol 12.5mg tablet PO SCH (08:00)
[2023-07-25] MEDS: hydrALAZINE 25 MG tablet PO SCH ×2 (08:00)
[2023-07-25] MEDS: docusate sod 100mg capsule PO SCH ×3 (08:00→13:00)
[2023-07-25] MEDS: furosemide 40mg/4ml inj IV SCH (08:00)
[2023-07-25] MEDS: multivitamins, therapeutics tablet PO SCH (08:59)
[2023-07-25] MEDS: tamsulosin 0.4mg capsule PO SCH (08:59)
[2023-07-25] MEDS: aspirin 81mg, enteric-coated 1 TAB TABLET.DR PO SCH (08:59)
[2023-07-25] MEDS: ferrous sulfate 325mg tablet PO SCH (08:59)
[2023-07-25] MEDS: cholecalciferol (vitamin D3) 1,000 unit (25mcg) tablet PO SCH (08:59)
[2023-07-25] MEDS: FLUoxetine 20mg capsule PO SCH (08:59)
[2023-07-25] MEDS: atorvastatin 20mg tablet PO SCH (09:01)
[2023-07-25] MEDS: levoTHYROXINE 125mcg tablet PO SCH ×2 (09:01→09:40)
[2023-07-25] MEDS: isosorbide mononitrate 30mg tab.SR.24H PO SCH (09:03)
[2023-07-25] MEDS: sacubitril/valsartan 24mg-26mg tablet PO SCH (09:46)
[2023-07-25 11:00] VITALS: BP 102/52; PULSE 74; RESP 14; TEMP 98.5; O2SAT 96
[2023-07-25 11:25] VITALS: PULSE 70; RESP 16; O2SAT 95
[2023-07-25] MEDS ORDERED: FURO40TA4 PO (14:51)
[2023-07-25 14:52] VITALS: RESP 18
--- NOTE | 2023-07-25 14:55 | NUR ---
Assessment reviewed, completed assessment by Marie MALAVE
--- NOTE | 2023-07-25 15:29 | NUR ---
Patient discharged - IV and telebox DCed and telebox [facility]. Discharged orders reviewed with pt and his , questions answered and pt stated understanding. Patient took all belongings and left in a private vehicle. He had no c/o of pain or discomfort at discharge.
== END 2023-07-25 15:15 | disposition home health service (06) | DRG 291 ==
LOC: ER 02:47 → ED HOLD 04:24 → EDBEDREQ 21:08 → PCU 3S 22:15
PROVIDERS: ADMIT Internal Medicine; ATTEND Family Medicine
PROC: 5A09357 Assistance with Respiratory Ventilation, Less than 24 Consecutive Hours, Continuous Positive Airway Pressure (ICD-10-PCS; principal; 2023-07-23)
DX: I13.0 Hypertensive heart and chronic kidney disease with heart failure and stage 1 through stage 4 chronic kidney disease, or unspecified chronic kidney disease (principal); I50.23 Acute on chronic systolic (congestive) heart failure; C95.10 Chronic leukemia of unspecified cell type not having achieved remission; E03.9 Hypothyroidism, unspecified; Z66 Do not resuscitate; E78.00 Pure hypercholesterolemia, unspecified; J44.9 Chronic obstructive pulmonary disease, unspecified; Z20.822 Contact with and (suspected) exposure to COVID-19; N18.9 Chronic kidney disease, unspecified; E11.22 Type 2 diabetes mellitus with diabetic chronic kidney disease; I48.91 Unspecified atrial fibrillation; I08.0 Rheumatic disorders of both mitral and aortic valves; I25.10 Atherosclerotic heart disease of native coronary artery without angina pectoris; N40.0 Benign prostatic hyperplasia without lower urinary tract symptoms; D64.9 Anemia, unspecified; G89.29 Other chronic pain; Z82.0 Family history of epilepsy and other diseases of the nervous system; Z80.8 Family history of malignant neoplasm of other organs or systems; Z82.49 Family history of ischemic heart disease and other diseases of the circulatory system; Z88.0 Allergy status to penicillin; Z99.81 Dependence on supplemental oxygen; Z86.73 Personal history of transient ischemic attack (TIA), and cerebral infarction without residual deficits; I25.2 Old myocardial infarction
CPT/HCPCS: 36415; 71045; 80053; 82800; 82948; 83036; 83605; 83735; 83880; 84132; 84443; 84484; 85025; 85610; 87040; 87081; 87502; 87503; 87811; 94660; 94760; 99285; A4615; A6449; G0378; J0282; J1940; J2060; J2405; J3490; J7040; J7050